=== PATIENT | female | born 1970 | race Caucasian/White ===

== ENCOUNTER 2020-07-18 12:10 | Outpatient (REF) | payer OTHER, SELFPAY ==
--- NOTE | ~2020-07-18 | XR_ITS ---
EXAMINATION: XR KNEE, LEFT CLINICAL INFORMATION: Left knee pain COMPARISON: None TECHNIQUE: Four views of the left knee. FINDINGS: No fracture or joint effusion. Alignment is anatomic. Joint spaces are well maintained. No abnormal soft tissue calcification. XR/XR knee LT 4V IMPRESSION: No evidence of acute osseous abnormality.
== END 2020-07-18 12:11 | disposition home or self-care (01) ==
LOC: HO.HMGCX 12:10
PROVIDERS: Visit Provider Hospitalist
DX: M25.562 Pain in left knee (principal)
CPT/HCPCS: 73564

== ENCOUNTER 2020-09-10 13:00 | Outpatient (REF) | payer OTHER, SELFPAY | END 2020-09-10 13:01 | disposition home or self-care (01) | LOC: HO.LAB 13:00 | PROVIDERS: Visit Provider Nurse Practitioner Family | DX: R30.0 Dysuria (principal) | CPT/HCPCS: 87086 ==

== ENCOUNTER 2021-01-22 09:09 | Emergency (ER) | payer OTHER, SELFPAY ==
--- NOTE | ~2021-01-22 | CT_ITS ---
EXAMINATION: CT HEAD WITHOUT CONTRAST CLINICAL INFORMATION: New onset of frequent headaches. COMPARISON: None TECHNIQUE: Contiguous axial imaging was performed from the skull base to vertex without intravenous administration of contrast. This CT examination was performed using dose optimization techniques as appropriate, variously including the following: *Automated exposure control *Adjustment of mA and/or kV according to patient size (this includes techniques or standardized protocols for targeted exams where dose is matched to indication/reason for exam; i.e. extremities or head) *Use of iterative reconstruction technique DLP: 650 mGy-cm FINDINGS: There is no evidence of acute intracranial hemorrhage or territorial infarction. No abnormal mass effect or midline shift is seen. Aviles to white matter differentiation is well preserved. No extra-axial fluid collections are identified. The ventricles are normal in size. There is no abnormal attenuation within the brain parenchyma. The osseous structures and soft tissues are normal. No scalp soft tissue abnormality. There are mild retention cysts or polyps bilateral maxillary sinuses. The rest of the paranasal sinuses and mastoid air cells are well aerated CT/CT head/brain wo IV con IMPRESSION: No acute intracranial process seen. Mild bilateral maxillary sinus polyps or retention cysts.
[2021-01-22 09:31] VITALS: BP 123/88; PULSE 67; RESP 18; TEMP 36; O2SAT 98; BMI 39.4
--- NOTE | 2021-01-22 10:47 | ED_ITS ---
HPI - Headache General Chief Complaint: Headache Stated Complaint: migraine Time Seen by Provider: 01/22/21 10:04 Source: patient Mode of arrival: ambulatory Limitations: no limitations History of Present Illness HPI Narrative: Patient comes emergency room complaining of headache that occurred 3 days ago. Patient states she has frequent headaches, recently started on Topamax. At this time, patient does not have any headache. Patient states that approximately 3 days ago she was sitting in the toilet, was bearing down, had sudden onset headache, then self resolved. Patient states she did not take any other medication other than Topamax. At this time patient is asymptomatic. Patient denies any neurological deficits now or during the headache episode. Related Data Home Medications Medication Instructions Recorded Confirmed paroxetine HCl 20 mg tablet 20 mg PO DAILY 07/18/20 07/18/20 Previous Rx's Medication Instructions Recorded amoxicillin 875 mg-potassium 1 tab PO BID 10 Days #20 tab 09/10/20 clavulanate 125 mg tablet (Augmentin) cephalexin 500 mg capsule 500 mg PO QID 7 Days #28 cap 09/10/20 itraconazole 100 mg capsule 200 mg PO BID 7 Days #28 cap 09/10/20 Allergies Allergy/AdvReac Type Severity Reaction Status Date / Time soma along with motrin Allergy Unknown Unknown Uncoded 01/22/21 09:31 Review of Systems Review of Systems: Constitutional : No Weight loss, No Fever, No Chills, No Night Sweats, No Fatigue, No Malaise ENT/Mouth : No Hearing loss, No Ear Pain, No Nasal Congestion, No Sinus Pain, No Hoarseness, No sore throat, No Rhinorrhea, No Swallowing Difficulty Eyes: No Eye Pain, No Swelling, No Redness, No Foreign Body, No Discharge, No Vision Changes Cardiovascular : No Chest Pain, No SOB, No Dyspnea on Exertion, No Orthopnea, No Edema, No Palpitations Respiratory : No Cough, No Sputum, No Wheezing, No Smoke Exposure, No Dyspnea Gastrointestinal : No Nausea, No Vomiting, No Diarrhea, No Constipation, No abdominal Pain, No Hematochezia, No Melena Genitourinary : no irregular bleeding, No Dysuria, No Urinary Frequency, No Hematuria, No Urinary Incontinence, No Urgency, No Flank Pain, No Urinary Flow Changes, No Hesitancy Musculoskeletal : No joint pain, No Myalgias, No Joint Swelling Skin : No Skin Lesions, No rash Neuro : No Weakness, No Numbness, No Paresthesias, No Loss of Consciousness, No Dizziness, intermittent headaches, no headache at this time, no neurological deficits Psych : No Anxiety/Panic, No Depression, No SI/HI/AH/VH, No Social Issues, Heme/Lymph: No Bruising, No Bleeding,No Lymphadenopathy Endocrine : No Polyuria, No Polydipsia, No Temperature Intolerance [facility] Social History Social History Alcohol intake: current Alcohol intake frequency: holidays/special occasions only Advance Directives: No Advance Directives Information Provided: No Physical Exam Vital Signs: Vital Signs: Last Vital Signs Temp 96.8 F 01/22/21 09:31 Pulse 67 01/22/21 09:31 Resp 18 01/22/21 09:31 BP 123/88 01/22/21 09:31 Pulse Ox 98 01/22/21 09:31 Body Mass Index 39.4 Const: Other: Appearance: Alert. Oriented X3. No acute distress. Eyes: Pupils equal, round and reactive to light. ENT: Pharynx normal. Neck: Normal inspection. Neck supple. No lymph nodes noted. No crepitus CVS: Normal heart rate and rhythm. Pulses normal. Normal S1 and S2 Respiratory: No respiratory distress. Breath sounds normal. No Wheezing. No rales Abdomen: Soft and nontender. No rigidity. No distention. Skin: Skin warm and dry. Normal skin color. Normal skin turgor. Extremities: No lower extremity edema. . No Lacerations. No Rash Neuro: Oriented X 3. No motor deficit. No sensory deficit. Moving all extermities. No slurred speech. Course Course Course Narrative: I discussed the CT scan with the patient, no acute findings. Patient instructed to take Tylenol or ibuprofen for headaches p.r.n.. MDM - Headache Imaging Data CT scan - head: Radiologist's impression: There is no evidence of acute intracranial hemorrhage or territorial infarction. No abnormal mass effect or midline shift is seen. Aviles to white matter differentiation is well preserved. No extra-axial fluid collections are identified. The ventricles are normal in size. There is no abnormal attenuation within the brain parenchyma. The osseous structures and soft tissues are normal. No scalp soft tissue abnormality. There are mild retention cysts or polyps bilateral maxillary sinuses. The rest of the paranasal sinuses and mastoid air cells are well aerated ? CT/CT head/brain wo con IMPRESSION: No acute intracranial process seen. ? Mild bilateral maxillary sinus polyps or retention cysts. Discharge Plan Discharge Clinical Impression: Headache Qualifiers: Headache chronicity pattern: acute headache Intractability: not intractable Patient Disposition: Home, Self-Care Instructions: Acute Headache (ED) Additional Instructions: Please follow-up with your primary care physician tomorrow. If you have any worsening or new symptoms, please return to the emergency room or call 911 Prescriptions: No Action paroxetine HCl 20 mg tablet 20 mg PO DAILY RF: 0 amoxicillin-pot clavulanate [Augmentin] 875-125 mg tablet 1 tab PO BID 10 Days Qty: 20 RF: 0 cephalexin 500 mg capsule 500 mg PO QID 7 Days Qty: 28 RF: 0 itraconazole 100 mg capsule 200 mg PO BID 7 Days Qty: 28 RF: 0
== END 2021-01-22 14:22 | disposition home or self-care (01) ==
PROVIDERS: Emergency Provider Emergency Medicine
DX: R51.9 Headache, unspecified (principal)
CPT/HCPCS: 70450; 99283; 99284

== ENCOUNTER 2021-01-23 19:01 | Emergency (ER) | payer OTHER, SELFPAY ==
[2021-01-23 19:04] VITALS: BP 120/81; BP 126/82; PULSE 66; PULSE 94; RESP 14; TEMP 36.8; O2SAT 100; O2SAT 99; BMI 39.6
[2021-01-23] MEDS: Ketorolac Tromethamine 15 MG/ML VIAL 30 MG IVPUSH (19:22)
[2021-01-23 19:24] LABS: MANUAL DIFF FLAG NO
[2021-01-23 19:26] LABS: Basophils Absolute Auto 0.1 X10*3/uL (0.0-0.2); Basophils Percent Auto 0.6 % (0-2); Eosinophils Absolute Auto 0.1 X10*3/uL (0.0-0.4); Eosinophils Percent Auto 0.7 % (0-4); Hematocrit 43.5 % (37-47); Hemoglobin 14.7 g/dl (12.0-16.0); Imm Gran Abs Auto 0.07 X10*3/uL (0.00-0.03); Imm Gran Pct Auto 0.4 % (0.0-0.4); Lymphocytes Absolute Auto 4.1 X10*3/uL (1.2-4.9); Lymphocytes Percent Auto 24.1 % (20-40); Mean Corpuscular HGB Conc 33.8 g/dl (31.0-35.0); Mean Corpuscular Hemoglobin 29.8 pg (27.0-33.0); Mean Corpuscular Volume 88.2 fL (80-98); Mean Platelet Volume 9.1 fL (9.4-12.3); Monocytes Absolute Auto 1.1 X10*3/uL (0.1-1.2); Monocytes Percent Auto 6.7 % (2-11); Neutrophils Absolute Auto 11.4 X10*3/uL (2.0-8.3); Neutrophils Percent Auto 67.5 % (45-73); Platelet Count 463 X10*3/uL (160-400); Red Blood Count 4.93 X10*6/uL (4.20-5.50); Red Cell Distribution Width 13.6 % (11.0-16.0); White Blood Count 16.9 X10*3/uL (4.8-10.8)
[2021-01-23] MEDS: diphenhydrAMINE HCL 50 MG/ML VIAL IVPUSH (19:26)
[2021-01-23] MEDS: Metoclopramide HCl 10 MG/2 ML VIAL IVPUSH (19:28)
--- NOTE | 2021-01-23 19:29 | ED_ITS ---
HPI - Headache General Chief Complaint: Headache Stated Complaint: headache Time Seen by Provider: 01/23/21 19:28 Source: patient Mode of arrival: ambulatory Limitations: no limitations History of Present Illness HPI Narrative: Patient presents to the ED headache patient states having these headaches since Wednesday. Patient states at the same time was having slight cough and runny nose with sinus pain. on wednesday and was evaluated by her PCP. Patient states headache is like a band around her head. Patient states coughing resolved, but still has nasal congestion and sinus pain with headache. Patient denies any slurred speech, nausea, emesis, dizziness, loss of vision, paralysis of extremities, facial droop, or change in vision. Patient denies any fever, chills, or neck stiffness. Patient denies any recent head trauma. Patient states no shortness of breath or chest pain. Related Data Home Medications Medication Instructions Recorded Confirmed paroxetine HCl 20 mg tablet 20 mg PO DAILY 07/18/20 07/18/20 Previous Rx's Medication Instructions Recorded amoxicillin 875 mg-potassium 1 tab PO BID 10 Days #20 tab 09/10/20 clavulanate 125 mg tablet (Augmentin) cephalexin 500 mg capsule 500 mg PO QID 7 Days #28 cap 09/10/20 itraconazole 100 mg capsule 200 mg PO BID 7 Days #28 cap 09/10/20 amoxicillin 875 mg-potassium 1 tab PO Q12H 10 Days #20 tab 01/23/21 clavulanate 125 mg tablet (Augmentin) bumwdmcwam-ddncuknxihckg-llmmfdhy 1 cap PO Q6H PRN #20 cap 01/23/21 50 mg-300 mg-40 mg capsule (Fioricet) ketorolac 10 mg tablet 10 mg PO Q6H PRN 5 Days #20 tab 01/23/21 triamcinolone acetonide 55 mcg 2 spray INTRANASAL DAILY 7 Days 01/23/21 nasal spray aerosol (Nasacort) #16.9 ml Allergies Allergy/AdvReac Type Severity Reaction Status Date / Time soma along with motrin Allergy Unknown Unknown Uncoded 01/22/21 09:31 Review of Systems Review of Systems: Yes all other systems are reviewed and are negative Constitutional: Constitutional: Reports as per HPI, Reports no additional constitutional complaints and Reports headache(s) Eyes: Eyes: Reports as per HPI and Reports no additional eye complaints ENT: Reports system reviewed and no additional complaints, except as documented, Reports as per HPI, Reports headache(s) and Reports nasal congestion Cardiovascular: Cardiovascular: Reports as per HPI and Reports no additional cardiovascular complaints Respiratory: Respiratory: Reports as per HPI, Reports no additional respiratory complaints and Reports cough Gastrointestinal: Gastrointestinal: Reports as per HPI and Reports no additional gastrointestinal complaints Genitourinary: Genitourinary: Reports no additional female genitourinary complaints and Reports as per HPI Musculoskeletal: Musculoskeletal: Reports no additional musculoskeletal co mplaints and Reports as per HPI Neurologic: Reports system reviewed and no additional complaints, except as documented, Reports as per HPI and Reports headache(s) Psychiatric: Psychiatric: Reports no additional psychiatric complaints and Reports as per HPI [facility] Social History Social History Alcohol intake: current Alcohol intake frequency: holidays/special occasions only Advance Directives: No Advance Directives Information Provided: Yes Physical Exam Vital Signs: Vital Signs: Last Vital Signs Temp 98.2 F 01/23/21 22:51 Pulse 72 01/23/21 22:51 Resp 16 01/23/21 22:51 BP 108/63 01/23/21 22:51 Pulse Ox 96 01/23/21 22:51 Body Mass Index 39.6 Const: General: cooperative, healthy appearing, comfortable, no acute distress, well developed, alert, awake and Physically active Orientation/consciousness: patient oriented x3 HENMT: Head: Yes normal to inspection, Yes No palpable skull fracture present, Yes normocephalic, Yes atraumatic and No abrasion Ears: hearing grossly normal bilaterally, external ears normal, TM's normal bilaterally, mastoids no rmal and no periauricular adenopathy Face and sinus: Yes sinus tenderness (frontal and maxillary) Throat: Yes posterior oropharynx normal, Yes tonsils normal and Yes uvula midline Eyes: Other: Negative photophobia Neck: Neck: Yes normal visual inspection, Yes full ROM, Yes no lymphadenopathy, Yes no meningeal signs, Yes trachea midline, Yes supple and No tender Chest: Chest palpation & inspection: normal inspection of the chest and normal palpation of entire chest wall Resp: Effort & Inspection: normal respiratory effort and able to speak in complete sentences Auscultation: clear to auscultation bilaterally Cardio: Jugular venous distension: no JVD Heart sounds: S1 normal heart sound present and S2 normal heart sound present GI: Inspection: Yes normal to inspection and No abdominal wall ecchymosis Palpation (GI): Soft to palpation, not firm, nontender, no guarding and not rigid : General: No CVA tenderness and Yes no CVA tenderness Back/Spine/Pelvis: Back: no CVA tenderness, No CVA tenderness and No back tenderness Skin: General skin exam: no rashes or lesions noted and elasticity normal Neuro: General: patient oriented x3, gait normal, no meningeal signs and CN's II-XI intact bilaterally Cranial nerves: Yes CN's II-XII intact bilaterally Extrem: General: Yes normal to inspection and Yes full ROM Psych: Appearance: grossly normal, well kempt and not disheveled Course Course Course Narrative: Patient vital signs are stable. Will treat as migraine exace rbation. Head CT scan yesterday was normal. Negative for any neuro deficit. Will give migraine cocktail will do basic labs. We will do COVID swabs. Reevaluation(s) Reevaluation #1: [place] [id number] but once again negative for fever, chills, or neck stiffness. Vital signs are stable. Patient afebril e, non tachy, and is normotensive. Negative for photophobia or neck stiffness. Negative for history of herpes or HIV. Patient had normal head CT scan yesterday. Not suspect any cardiac etiology. Time: 19:42 Reevaluation #2: Patient is sleeping comfortably in bed and not in any distress. Will re-evaluate when awaken. Time: 22:22 Reevaluation #3: Patient states feeling better. Diagnosis migraines and with sinus infection. Patient will be treated with Flonase, Toradol, Fioricet, and antibiotics. Case discussed with Dr. Gallardo who agrees with plan. MDM - Headache MDM Narrative Medical decision making narrative: Migraine exacerbation. Sinussitis Lab Data Result diagrams: 01/23/21 19:19 01/23/21 19:48 Labs: Lab Results 01/23/21 01/23/21 01/23/21 Range/Units 19:19 19:25 19:48 WBC 16.9 H (4.8-10.8) X10*3/uL RBC 4.93 (4.20-5.50) X10*6/uL Hgb 14.7 (12.0-16.0) g/dl Hct 43.5 (37-47) % MCV 88.2 (80-98) fL MCH 29.8 (27.0-33.0) pg MCHC 33.8 (31.0-35.0) g/dl RDW 13.6 (11.0-16.0) % Plt Count 463 H (160-400) X10*3/uL MPV 9.1 L (9.4-12.3) fL Immature Gran % (Auto) 0.4 (0.0-0.4) % Neut % (Auto) 67.5 (45-73) % Lymph % (Auto) 24.1 (20-40) % [place] % (Auto) 6.7 (2-11) % Eos % (Auto) 0.7 (0-4) % Baso % (Auto) 0.6 (0-2) % Lymph # (Auto) 4.1 (1.2-4.9) X10*3/uL [place] # (Auto) 1.1 (0.1-1.2) X10*3/uL Eos # (Auto) 0.1 (0.0-0.4) X10*3/uL Baso # (Auto) 0.1 (0.0-0.2) X10*3/uL Abs Immat Gran (auto) 0.07 H (0.00-0.03) X10*3/uL Absolute Neuts (auto) 11.4 H (2.0-8.3) X10*3/uL Absolute Nucleated RBC 0.000 (0.0-0.012) X10*3/uL Nucleated RBC % (auto) 0.0 (0.0-0.2) /100WBC Sodium 140 (135-145) mmol/L Potassium 3.7 (3.3-5.1) mmol/L Chloride 108 (96-108) mmol/L Carbon Dioxide 25 (22-29) mmol/L Anion Gap 11 L (12-20) BUN 19 H (9-16) mg/dL Creatinine 0.90 (0.5-1.4) mg/dL Estim Creat Clear Calc 70.9 Estimated GFR > 60 Random Glucose 107 (60-115) mg/dL Calcium 9.5 (8.4-10.2) mg/dL Total Bilirubin 0.3 (0.0-1.0) mg/dL AST 21 (5-31) U/L ALT 31 (0-31) U/L Alkaline Phosphatase 93 (39-117) U/L Total Protein 7.6 (6.5-8.0) g/dL Albumin 4.4 (3.5-5.0) g/dL Coronavirus (PCR) NEGATIVE (Negative) Influenza Type A (PCR) NEGATIVE (Negative) Influenza Type B (PCR) NEGATIVE (Negative) RSV RNA Qual (PCR) NEGATIVE (Negative) Discharge Plan Discharge Clinical Impression: Sinusitis, Migraine Patient Disposition: Home, Self-Care Instructions: Sinusitis (ED), Migraine Headache (ED) Additional Instructions: Return to the ED for any neck stiffness, photophobia, intractable headache, nausea, vomiting, fever, chills, slurred speech, facial droop, paralysis of extremities, dizziness, loss of vision, or any other concerning symptoms. Please follow-up with the primary care provider and neurologist Prescriptions: New triamcinolone acetonide [Nasacort] 55 mcg aerosol,spray 2 spray intranasal DAILY 7 Days Qty: 16.9 RF: 0 amoxicillin-pot clavulanate [Augmentin] 875-125 mg tablet 1 tab PO Q12H 10 Days Qty: 20 RF: 0 gcrlqhiqsa-bkpqbyiqmqvyd-infq [Fioricet] 50-300-40 mg capsule 1 cap PO Q6H PRN (Reason: pain) Qty: 20 RF: 0 ketorolac 10 mg tablet 10 mg PO Q6H PRN (Reason: pain) 5 Days Qty: 20 RF: 0 No Action paroxetine HCl 20 mg tablet 20 mg PO DAILY RF: 0 amoxicillin-pot clavulanate [Augmentin] 875-125 mg tablet 1 tab PO BID 10 Days Qty: 20 RF: 0 cephalexin 500 mg capsule 500 mg PO QID 7 Days Qty: 28 RF: 0 itraconazole 100 mg capsule 200 mg PO BID 7 Days Qty: 28 RF: 0 Referrals: Anabela Amado MD [Physician] - 2 days (Migraine) Stand Alone Forms: Work/School Release Interventions: ED Discharge Assessment Last Done: 01/23/21 22:52 Discharge Date/Time: 01/23/21 22:52 Print Language: Yoruba
[2021-01-23] MEDS: Butalb/Acetamin/Caff 50/325/40 TABLET 2 TAB PO (19:34)
[2021-01-23] MEDS: dexAMETHasone sod phosphate 10 MG/ML VIAL IVPUSH (19:39)
[2021-01-23] MEDS: Magnesium Sulfate/D5W 1 GM/100 ML PIGGYBACK IV (19:42)
[2021-01-23] MEDS: 0.9 % Sodium Chloride 1,000 ML 999 ML IV (19:58)
[2021-01-23 20:06] LABS: Influenza A PCR NEGATIVE (Negative); Influenza B PCR NEGATIVE (Negative); Resp Syncy Virus RNA Qual PCR NEGATIVE (Negative); SARS COV2 PCR INHOUSE NEGATIVE (Negative)
[2021-01-23 20:12] LABS: Alanine Aminotransferase 31 U/L (0-31); Albumin Level 4.4 g/dL (3.5-5.0); Alkaline Phosphatase 93 U/L (39-117); Anion Gap 11 (12-20); Aspartate Amino Transferase 21 U/L (5-31); Bilirubin Total 0.3 mg/dL (0.0-1.0); Blood Urea Nitrogen 19 mg/dL (9-16); Calcium 9.5 mg/dL (8.4-10.2); Carbon Dioxide 25 mmol/L (22-29); Chloride 108 mmol/L (96-108); Creatinine Clr Calc Pharmacy 70.9; Estimated Glomerular Filt Rate > 60; Glucose Random 107 mg/dL (60-115); Potassium 3.7 mmol/L (3.3-5.1); Sodium 140 mmol/L (135-145); Total Protein 7.6 g/dL (6.5-8.0)
[2021-01-23 20:45] VITALS: RESP 16
[2021-01-23 20:46] VITALS: RESP 16
[2021-01-23 22:51] VITALS: BP 108/63; PULSE 72; RESP 16; TEMP 36.8; O2SAT 96
== END 2021-01-23 22:52 | disposition home or self-care (01) ==
PROVIDERS: Physician Assistant; Emergency Provider Emergency Medicine
DX: G43.009 Migraine without aura, not intractable, without status migrainosus (principal); J32.9 Chronic sinusitis, unspecified; Z20.822 Contact with and (suspected) exposure to COVID-19
CPT/HCPCS: 0241U; 36415; 80053; 85025; 96365; 96375; 99284; J1100; J1200; J1885; J2765; J3475

== ENCOUNTER 2021-04-22 14:25 | Outpatient (REF) | payer OTHER, SELFPAY ==
--- NOTE | ~2021-04-22 | CT_ITS ---
EXAMINATION: CT ANGIOGRAM HEAD CLINICAL INFORMATION: Cerebral aneurysm. Headaches. COMPARISON: CT head from 01/22/2021. TECHNIQUE: Initial noncontrast stop attacher imaging of the head was performed. Noncontrast head CT was also performed. Test bolus sequences followed by intravenous administration 75 mL of Omnipaque 350. Helical imaging was performed in the axial plane from the skull base to the skull vertex. Delayed postcontrast imaging of the head was also performed. The data was processed at the radiation therapy technologist's workstation for generation of MIP sequences. Angled MIPs and volume rendered reformatted images were also generated at an offline 3D workstation. Stenoses are assessed in accordance with NASCET criteria unless otherwise indicated. This CT examination was performed using dose optimization techniques as appropriate, variously including the following: *Automated exposure control. *Adjustment of mA and/or kV according to patient size (this includes techniques or standardized protocols for targeted exams where dose is matched to indication/reason for exam; i.e. extremities or head). *Use of iterative reconstruction technique. DLP: 2212 mGy-cm FINDINGS: CT Head: There is no evidence of acute intracranial hemorrhage or edematous territorial infarction. There is no abnormal attenuation within the brain parenchyma. Aviles-white matter differentiation is preserved. The ventricles are normal in size and configuration. No evidence for obstructive hydrocephalus. No abnormal mass effect or midline shift. No extra-axial fluid collections. No pathologic intra-axial enhancement or regional oligemia. No acute soft tissue or osseous abnormalities. Mild mucosal thickening of the paranasal sinuses. Mucous retention cyst within the left maxillary sinus. The mastoid air cells and middle ear cavities are clear. Mild degenerative arthropathy of the right temporomandibular joint. Brain CTA: Intracranial Internal Carotid Arteries: Normal contrast opacification of the petrous, cavernous, paraophthalmic, and supraclinoid segments of the internal carotid arteries without focal stenosis. Right Anterior Cerebral Artery: Normal A1 segment. Normal opacification of the distal segments of the OLI. Left Anterior Cerebral Artery: Normal A1 segment. Normal opacification of the distal segments of the OLI. Anterior Communicating Artery: Normal. Right Middle Cerebral Artery: Normal opacification of the M1 segment of the MCA without focal stenosis or occlusion. Normal arborization of the distal segments. Left Middle Cerebral Artery: Normal opacification of the M1 segment of the MCA without focal stenosis or occlusion. Normal arborization of the distal segments. Right Vertebral Artery: Normal opacification of the V4 segment. Normal opacification of the proximal segments of the posterior inferior cerebellar artery. Left Vertebral Artery: Normal opacification of the V4 segment. Normal opacification of the proximal segments of the posterior inferior cerebellar artery. Basilar Artery: Normal opacification without focal stenosis or occlusion. Normal appearance of the proximal superior cerebellar arteries. Right Posterior Cerebral Artery: The P1 segment is diminutive. origin of the TELEVISION DIRECTOR with robust opacification of the posterior communicating artery. Normal opacification of the distal segments of the TELEVISION DIRECTOR. Left Posterior Cerebral Artery: Normal P1 segment. Normal opacification of the distal segments of the TELEVISION DIRECTOR. Normal opacification of the superior sagittal, straight, transverse, and sigmoid sinuses. CT/CT angio head IMPRESSION: 1. No evidence of acute intracranial hemorrhage or edematous territorial infarction. 2. Normal CTA of the head. No demonstrated proximal occlusion or flow-limiting stenosis. No demonstrated intracranial aneurysm.
[2021-04-22] MEDS: iohexoL 350 MG/ML 100 ML INFUS..BTL IV (16:29)
== END 2021-04-22 14:26 | disposition home or self-care (01) ==
LOC: HO.CT 14:25
PROVIDERS: PCP Internal Medicine; Visit Provider Psychiatry & Neurology Neurology
DX: I87.1 Compression of vein (principal)
CPT/HCPCS: 70496; Q9967

== ENCOUNTER 2021-04-22 14:35 | Outpatient (REF) | payer OTHER, SELFPAY ==
[2021-04-22 15:33] LABS: Blood Urea Nitrogen 19 mg/dL (9-16); Estimated Glomerular Filt Rate > 60
== END 2021-04-22 14:36 | disposition home or self-care (01) ==
LOC: HO.LAB 14:35
PROVIDERS: Visit Provider Psychiatry & Neurology Neurology
DX: I67.1 Cerebral aneurysm, nonruptured (principal)
CPT/HCPCS: 36415; 82565; 84520

== ENCOUNTER 2021-07-07 14:22 | Outpatient (REF) | payer OTHER, SELFPAY ==
[2021-07-07 17:17] LABS: Influenza A PCR NEGATIVE (Negative); Influenza B PCR NEGATIVE (Negative); Resp Syncy Virus RNA Qual PCR NEGATIVE (Negative); SARS COV2 PCR INHOUSE NEGATIVE (Negative)
== END 2021-07-07 14:23 | disposition home or self-care (01) ==
LOC: HO.LAB 14:22
PROVIDERS: Visit Provider Internal Medicine
DX: R09.89 Other specified symptoms and signs involving the circulatory and respiratory systems (principal)
CPT/HCPCS: 0241U

== ENCOUNTER → 2023-01-11 14:32 | Outpatient (BNVA) | payer SELFPAY | DX: Z23 Encounter for immunization (principal) ==

== ENCOUNTER 2023-07-06 13:04 | Outpatient (AMB) | payer OTHER, MEDICAID, SELFPAY ==
[2023-07-06 13:05] VITALS: BP 126/84; PULSE 70; TEMP 36.6; O2SAT 98; BMI 37.7
--- NOTE | 2023-07-06 13:05 | MHC.OFFWIV ---
Intake Vital Signs 07/06/23 13:05 Height 4 ft 11 in Weight 186 lb 8 oz BMI 37.7 BP 126/84 Blood Pressure Location Lt brachial Position Sitting Pulse 70 Pulse Source Pulse Oximeter Temp 97.8 F Temp Source Oral Pulse Oximetry (%) 98 Oxygen Delivery Method Room Air Intake Visit Reasons: Sore throat Intake Note: Pt presents to the office today for c/o a sore throat. She states she has been tired lately and noticed white spots on her tonsils. Pt states she has had a sore throat x3 days. Allergies Soma and motrin Allergy (Intermediate, Uncoded 07/06/23 13:29) hives, rash Medication List - Last Reconciled 07/06/23 by Marbin Chakraborty MD paroxetine HCl 20 mg PO DAILY HPI Sore throat HPI Details Patient presents for a sick visit. Reporting symptoms of sinus congestion, sore throat and difficulty swallowing. Low-grade fever. No family member is sick. No recent travel. Patient reports symptoms of malaise and fatigue. [facility] Social History Alcohol intake: current Alcohol intake frequency: holidays/special occasions only Patient Tobacco Use Status: Never used Tobacco Use of substances other than those prescribed or required for medical reasons: No Physical Exam Vital Signs: Last Vital Signs Temp 97.8 F 07/06/23 13:05 Pulse 70 07/06/23 13:05 BP 126/84 07/06/23 13:05 Pulse Ox 98 07/06/23 13:05 Oxygen Delivery Method Room Air 07/06/23 13:05 BMI result Body Mass Index 37.7 Const General: cooperative and healthy appearing Nutritional Appearance: well nourished Orientation/consciousness: patient oriented x3 Limitations: no limitations HEENT Head: Yes normal to inspection Eyes General: appearance normal, both eyes and all related structures Neck Neck: Yes normal visual inspection Chest Chest palpation & inspection: normal palpation of entire chest wall Resp Effort & Inspection: normal respiratory effort Neuro General: patient oriented x3 Results AMB Rapid Strep AMB Rapid Strep Negative Last Edit by Shelli Nathan MA on 07/06/23 13:21 Results Reviewed Results Reviewed: Laboratory Last Values Strep Scn Rapid [facility] Negative 07/06/23 13:19 Assessment & Plan Assessment & Plan (1) Upper respiratory tract infection: Code(s): J06.9 - Acute upper respiratory infection, unspecified Plan: Antibiotics ordered. Increase fluid intake. Tylenol for aches and pains. If symptoms worsen, follow-up here for a recheck. Orders: Orders AMB Rapid Strep Screen Today Z13.9 - Encounter for screening, unspecified Coding Level of Care Code Est Pt Level 3 (48135) Diagnoses Upper respiratory tract infection J06.9
== END 2023-07-06 13:37 | disposition home or self-care (01) ==
PROVIDERS: Visit Provider Internal Medicine
DX: Z13.9 Encounter for screening, unspecified (principal); J06.9 Acute upper respiratory infection, unspecified
CPT/HCPCS: 87880; 99213

== ENCOUNTER 2023-09-13 15:41 | Outpatient (AMB) | payer OTHER, SELFPAY ==
--- NOTE | 2023-09-13 15:43 | AM.OFFWIN_ITS ---
Intake Vital Signs 09/13/23 15:44 Height 4 ft 11 in BP 130/80 Blood Pressure Location Rt brachial Position Sitting Pulse 82 Pulse Source Pulse Oximeter Temp 98.1 F Temp Source Oral Pulse Oximetry (%) 98 Intake Visit Reasons: EP Diarrhea, lower back/side pain Intake Note: pt is here for c/o diarrhea, reports lower back and side pain Patient Tobacco Use Status: Never used Tobacco Allergies Soma and motrin Allergy (Intermediate, Uncoded 09/13/23 15:44) hives, rash Do you need a note to return to daycare/school/sports/work: No HPI HPI Comments History of Present Illness Details Patient presents to the walk-in today for sick visit Complaining of diarrhea for last 5 days, back pain for last 2 days Reports she called out sick yesterday 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 Pending appointment with GI, patient reports that she has history of stomach issues and has been procrastinating about getting an appointment with GI for follow-up [facility] Social History Alcohol intake: current Alcohol intake frequency: holidays/special occasions only Patient Tobacco Use Status: Never used Tobacco Review of Systems Const All systems reviewed & are unremarkable except as noted in HPI and below Physical Exam Vital Signs: Last Vital Signs Temp 98.1 F 09/13/23 15:44 Pulse 82 09/13/23 15:44 BP 130/80 09/13/23 15:44 Pulse Ox 98 09/13/23 15:44 General: awake, alert, oriented. Answers questions appropriately. Fully engaged in examination. Skin: warm, dry, intact HEENT: Normocephalic. Hearing intact. Cardiac: External chest normal in appearance. Respiratory: No cough, audible wheezing or stridor. Abdomen: without gross distension. soft, nontender. no guarding. no CVA tenderness MS: No obvious swelling or deformities. Tender to palpation midline lumbar vertebrae lumbar paraspinal muscles Neurological: Oriented to person, place, time and situation. Thought process intact. Psychiatric: Appropriate mood and affect. Good judgment and insight. Results AMB Urinalysis, Automated UA Leukoctes 0 Rubin/uL Last Edit by Jaylon Belle CMA on 09/13/23 16:19 UA Nitrite Negative Last Edit by Jaylon Belle, DIANE on 09/13/23 16:19 UA Urobilinogen 0.2 mg/dL Last Edit by Jaylon Belle, DIANE on 09/13/23 16 :19 UA Protein 30 mg/dL Last Edit by Jaylon Belle, DIANE on 09/13/23 16:19 UA pH 5.5 Last Edit by Jaylon Belle, DIANE on 09/13/23 16:19 UA Blood 0 Davonte/uL Last Edit by Jaylon Belle, DIANE on 09/13/23 16:19 UA Specific [place] 1.030 Last Edit by Jaylon Belle, DIANE on 09/13/23 16:19 UA Ketone Positive Last Edit by Jaylon Belle, DIANE on 09/13/23 16:19 UA Bilirubin 1 mg/dL Last Edit by Jaylon Belle CMA on 09/13/23 16:19 UA Glucose 0 mg/dL Last Edit by Jaylon Belle, DIANE on 09/13/23 16:19 Assessment & Plan Assessment & Plan (1) Diarrhea: Code(s): R19.7 - Diarrhea, unspecified (2) Back pain: Code(s): M54.9 - Dorsalgia, unspecified Plan Diarrhea and back pain likely secondary to viral GI illness Advised dietary modifications including brat diet Continue to drink plenty of fluids to ensure hydrated Methocarbamol 500 mg p.o. as needed for muscle spasms Work note provided Patient advised on red flag symptoms and when to seek treatment in the emergency room Follow up with GI Follow up with PCP or return here for any new worsening symptoms Orders: Orders AMB Urinalysis Automated Today Z13.9 - Encounter for screening, unspecified Medications: New methocarbamol 500 mg PO TID 14 tabs 0RF Coding Level of Care Code Est Pt Level 3 (80751) Diagnoses Diarrhea R19.7 Back pain M54.9
[2023-09-13 15:44] VITALS: BP 130/80; PULSE 82; TEMP 36.7; O2SAT 98
== END 2023-09-13 16:34 | disposition home or self-care (01) ==
PROVIDERS: Visit Provider Registered Nurse Emergency
DX: R19.7 Diarrhea, unspecified (principal); M54.9 Dorsalgia, unspecified
CPT/HCPCS: 81003; 99213

== ENCOUNTER 2023-11-01 13:41 | Outpatient (AMB) | payer OTHER, SELFPAY ==
--- NOTE | 2023-11-01 13:42 | MHC.PC.OV ---
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 Required: No Allergies soma along with motrin Allergy (Unknown, Uncoded 11/01/23 13:54) Hives Medication List - Last Reconciled 11/01/23 by Prashant Brown MD naproxen sodium (Aleve) 440 mg PO DAILY paroxetine HCl 20 mg PO DAILY Tobacco use date assessed: 11/01/23 Dental Screening Dental Screen Date: 11/01/23 Did you have a dental visit in the last 12 months?: No Did you have a dental problem in the last 6 months where you did not have access to dental care?: No HPI Staff Development Educator - Establish Care HPI Details 52-year-old obese female with a history of migraine be seen for the 1st time. Has had a CT scan of the head had some mild sinus problems and maxillary sinus polyps 2020. PFSH Medical History (Updated 11/01/23 @ 14:25 by Prashant Brown MD) Dysuria Left knee pain Cellulitis Upper respiratory tract infection Otitis media Tinea of nail Surgical History (Updated 11/01/23 @ 14:01 by Prashant Brown MD) H/O tubal ligation Family History (Updated 11/01/23 @ 14:03 by Prashant Brown MD) Paternal Uncle Heart attack Paternal Aunt Colon cancer Maternal Aunt Colon cancer Social History (Updated 11/01/23 @ 14:04 by Prashant Brown MD) Alcohol intake: current Alcohol intake frequency: holidays/special occasions only Comment: once a month 2 shots Patient Tobacco Use Status: Never used Tobacco Years Smoked: 2013 stopped 1/2 pack a day x 20 years service: No Current occupational status: employed Cognitive needs: No Hearing needs: No Vision needs: No Questionnaire PHQ-9 Over the last 2 weeks, how often have you been bothered by any of the following problems? 1. Little interest or pleasure in doing things: several days 2. Feeling down, depressed, or hopeless: several days 3. Trouble falling or staying asleep, or sleeping too much: several days 4. Feeling tired or having little energy: several days 5. Poor appetite or overeating: several days 6. Feeling bad about yourself - or that you are a failure or have let yourself or your family down: several days 7. Trouble concentrating on things, such as reading the newspaper or watching television: not at all 8. Moving or speaking so slowly that other people could have noticed. Or the opposite - being so fidgety or restless that you have been moving around a lot more than usual: not at all 9. Thoughts that you would be better off or of hurting yourself in some way: not at all Total score: 6 Depression Screening Interpretation: Positive Depression Screening Follow-up: Existing condition Depression Screening Done: Yes 27720 - PHQ-9 Billing: Yes Source: Developed by Drs. Juan C Mitchell, Nita Dsouza, Kevyn Helm and colleagues, with an educational keli from [employer]. Thrive Questionnaire Date Thrive assessed: 11/01/23 I am a: Patient What is your living situation today?: I have a steady place to live Within the past 12 months, did the food you bought not last and you didn't have the money to get more?: Never true Within the past 12 months, did you worry whether your food would run out before you got money to buy more?: Never true Do you have trouble paying for medicines?: No Do you have trouble getting transportation to medical appointments?: No Do you have trouble paying your heating and electricity bill?: No Do you have trouble taking care of your child, family member or friend?: No Do you have trouble with day-to-day activities such as bathing, preparing meals, shopping, managing finances, etc.?: No Are you currently unemployed and looking for a job?: No Are you interested in more education?: No Please select the resources that you would like help with: None Currently or been in a relationship where the following occur: No concerns reported THRIVE Score: 0 AUDIT C Alcohol Use Questionnaire (AUDIT-C) 1. How often do you have a drink containing alcohol?: Monthly or less 2. How many drinks containing alcohol do you have on a typical day when you are drinking?: 1 or 2 3. How often do you have six or more drinks on one occasion?: Never Total Score: 1 ZURDO-7 AMB Questionnaire ZURDO-7 Date ZURDO - 7 assessed: 11/01/23 Feeling nervous, anxious, or on edge: 1 = Several days Not being able to stop or control worryin = Several days Worrying too much about different things: 1 = Several days Trouble relaxin = Several days Being so restless that it is hard to sit still: 0 = Not at all Becoming easily annoyed or irritable: 0 = Not at all Feeling afraid as if something awful might happen: 0 = Not at all Total ZURDO-7 score (0-4 normal; 5-9 mild; 10-14 moderate; 15-21 severe): 4 Source: Developed by Drs. Juan C Mitchell, Nita Dsouza, Kevyn Helm and colleagues, with an educational keli from [employer]. ZURDO-7 Assessment Billing ZURDO-7 Assessment Tool: ZURDO-7 Assessment 94073 Physical exam (Primary Care) Vital Signs: Last Vital Signs Pulse 79 11/01/23 13:43 BP 112/64 11/01/23 13:43 Pulse Ox 98 11/01/23 13:43 Oxygen Delivery Method Room Air 11/01/23 13:43 BMI result Body Mass Index 34.9 Tobacco/Smoking Status: Tobacco use Status Tobacco use date assessed 11/01/23 11/01/23 13:51 Patient Tobacco Use Status Never used Tobacco 11/01/23 13:51 PHQ-9: PHQ-9 Score PHQ-9: Total score 6 11/01/23 13:51 Depression Screening Interpretation: Positive Depression Screening Follow-up: Existing condition Thrive Assessment: Date of Thrive Assessment Date Thrive assessed 11/01/23 11/01/23 13:51 Currently or been in a relationship where the following occur: No concerns reported Const General: alert; No acute distress Eyes Conjunctivae: conjunctivae normal Resp Auscultation: clear to auscultation bilaterally Cardio Rate: regular rate Rhythm: regular rhythm GI Inspection: Yes normal to inspection Extrem General: Yes normal to inspection and No edema Assessment and Plan Assessment & Plan (1) Obesity (BMI 30-39.9): Code(s): E66.9 - Obesity, unspecified Plan: Diet and exercise (2) Migraine: Code(s): G43.909 - Migraine, unspecified, not intractable, without status migrainosus Plan: Patient is advised to eat healthy, keep well hydrated, keep active and have adequate sleep. (3) Diverticulosis: Code(s): K57.90 - Diverticulosis of intestine, part unspecified, without perforation or abscess without bleeding (4) Diarrhea: Code(s): R19.7 - Diarrhea, unspecified (5) Left wrist pain: Code(s): M25.532 - Pain in left wrist (6) Colon cancer screening: Code(s): Z12.11 - Encounter for screening for malignant neoplasm of colon (7) Breast cancer screening by mammogram: Code(s): Z12.31 - Encounter for screening mammogram for malignant neoplasm of breast (8) Generalized anxiety disorder: Comment: decline counselling Code(s): F41.1 - Generalized anxiety disorder Plan: patient state on paxil advised to take med at night due to drowiness side effect Orders: Orders MM tomosynthesis screening BI Today Z12.31 - Encounter for screening mammogram for malignant neoplasm of breast Thyroid Stimulating Hormone Today G43.909 - Migraine, unspecified, not intractable, without status migrainosus Vitamin B12 and Folate Today G43.909 - Migraine, unspecified, not intractable, without status migrainosus UA w Microscopic Today G43.909 - Migraine, unspecified, not intractable, without status migrainosus Complete Blood Count Auto Diff Today G43.909 - Migraine, unspecified, not intractable, without status migrainosus Comprehensive Met. Panel Today G43.909 - Migraine, unspecified, not intractable, without status migrainosus Free T4 (Free Thyroxine) Today G43.909 - Migraine, unspecified, not intractable, without status migrainosus Lipid Panel Today E78.00 - Pure hypercholesterolemia, unspecified, G43.909 - Migraine, unspecified, not intractable, without status migrainosus Vitamin D 25-OH Total Today G43.909 - Migraine, unspecified, not intractable, without status migrainosus XR wrist LT 2V Today M25.532 - Pain in left wrist Referrals Gastroenterology Referral K57.90 - Diverticulosis of intestine, part unspecified, without perforation or abscess without bleeding, R19.7 - Diarrhea, unspecified, Z12.11 - Encounter for screening for malignant neoplasm of colon Coding Level of Care Code New Pt Level 4 (24141) Diagnoses Obesity (BMI 30-39.9) E66.9 Migraine G43.909 Diverticulosis K57.90 Diarrhea R19.7 Left wrist pain M25.532 Colon cancer screening Z12.11 Breast cancer screening by mammogram Z12.31 Generalized anxiety disorder F41.1 Additional Codes ZURDO-7 Assessment Billing - ZURDO-7 Assessment Tool: ZURDO-7 Assessment 55346 ([id number])
[2023-11-01 13:43] VITALS: BP 112/64; PULSE 79; O2SAT 98; BMI 34.9
== END 2023-11-01 14:32 | disposition home or self-care (01) ==
PROVIDERS: PCP Internal Medicine; Visit Provider Internal Medicine
DX: G43.909 Migraine, unspecified, not intractable, without status migrainosus (principal); E66.9 Obesity, unspecified; Z68.34 Body mass index [BMI] 34.0-34.9, adult; K57.90 Diverticulosis of intestine, part unspecified, without perforation or abscess without bleeding; R19.7 Diarrhea, unspecified; M25.532 Pain in left wrist; Z12.11 Encounter for screening for malignant neoplasm of colon; Z12.31 Encounter for screening mammogram for malignant neoplasm of breast; F41.1 Generalized anxiety disorder
CPT/HCPCS: 99214

== ENCOUNTER 2023-12-31 09:43 | Outpatient (REF) | payer OTHER, SELFPAY | END 2023-12-31 09:44 | disposition home or self-care (01) | LOC: HO.LAB 09:43 | PROVIDERS: PCP Internal Medicine; Visit Provider Internal Medicine | DX: Z13.89 Encounter for screening for other disorder (principal) ==

== ENCOUNTER 2024-03-31 07:24 | Outpatient (REF) | payer OTHER, SELFPAY ==
--- NOTE | ~2024-03-31 | XR_ITS ---
EXAMINATION: XR WRIST, LEFT CLINICAL INFORMATION: M25.532 - Pain in left wrist COMPARISON: None available. TECHNIQUE: PA, lateral, and oblique views of the left wrist. FINDINGS: Deformity of the distal radius compatible with old healed intra-articular fracture at the level of the lunate fossa. Small ossicle distal to the ulnar styloid. Mild osteoarthritis of the 1st carpometacarpal joint. XR/XR wrist LT 2V IMPRESSION: 1. Old healed distal radius fracture. 2. Mild osteoarthritis of the 1st carpometacarpal joint. Electronically signed by: Horace Sims MD 03/31/2024 09:44 PM EST
[2024-03-31 10:01] LABS: MANUAL DIFF FLAG NO
[2024-03-31 11:08] LABS: Basophils Absolute Auto 0.1 X10*3/uL (0.0-0.2); Basophils Percent Auto 0.9 % (0-2); Eosinophils Absolute Auto 0.1 X10*3/uL (0.0-0.4); Eosinophils Percent Auto 1.7 % (0-4); Hematocrit 39.4 % (37.0-47.0); Hemoglobin 12.9 g/dl (12.0-16.0); Imm Gran Abs Auto 0.02 X10*3/uL (0.00-0.03); Imm Gran Pct Auto 0.3 % (0.0-0.4); Lymphocytes Absolute Auto 2.4 X10*3/uL (1.2-4.9); Mean Corpuscular HGB Conc 32.7 g/dl (31.0-35.0); Mean Corpuscular Hemoglobin 29.4 pg (27.0-33.0); Mean Corpuscular Volume 89.7 fL (80.0-98.0); Mean Platelet Volume 9.1 fL (9.4-12.3); Monocytes Absolute Auto 0.6 X10*3/uL (0.1-1.2); Monocytes Percent Auto 8.9 % (2-11); Neutrophils Absolute Auto 3.5 x10*3/uL (2.0-8.3); Neutrophils Percent Auto 52.2 % (45-73); Platelet Count 481 X10*3/uL (160-400); Red Blood Count 4.39 X10*6/uL (4.20-5.50); Red Cell Distribution Width 13.3 % (11.0-16.0); White Blood Count 6.6 X10*3/uL (4.8-10.8)
[2024-03-31 11:53] LABS: Alanine Aminotransferase 16 U/L (0-31); Alkaline Phosphatase 91 U/L (39-117); Anion Gap 10 (12-20); Aspartate Amino Transferase 27 U/L (5-31); Bilirubin Total 0.4 mg/dL (0.0-1.0); Blood Urea Nitrogen 19 mg/dL (9-16); Calcium 9.2 mg/dL (8.4-10.2); Carbon Dioxide 29 mmol/L (22-29); Chloride 107 mmol/L (96-108); Cholesterol 193 mg/dL (<200); Estimated Glomerular Filt Rate > 60; Glucose Random 84 mg/dL (60-115); HDL Cholesterol 56 mg/dL (>40); LDL Cholesterol Calculated 126 mg/dL (<100); Potassium 3.8 mmol/L (3.3-5.1); Sodium 142 mmol/L (135-145); Total Protein 7.5 g/dL (6.5-8.0); Triglycerides 58 mg/dL (<150)
[2024-03-31 12:09] LABS: Folate 17.1 ng/mL (> or = 4.0); Vitamin B12 934 pg/mL (200-900)
[2024-03-31 12:13] LABS: Free T4 (Free Thyroxine) 1.05 ng/dL (0.71-1.85); Thyroid Stimulating Hormone 1.21 uIU/mL (0.32-4.0); Vitamin D 25-OH Total 67.1 ng/mL (>30)
[2024-03-31 13:29] LABS: Appearance Urine Cloudy; Color Urine Yellow; Glucose Urine UA Negative (Negative); Leukocyte Esterase Urine Trace (Negative); Nitrite Urine Negative (Negative); Specific Gravity - Urine 1.025 (1.005-1.025); UMIC TRIGGER UA YES; Urine Blood Negative (Negative); Urine Ketones Negative (Negative); Urine Protein Negative (Neg-Trace)
[2024-03-31 13:39] LABS: Bacteria Urine None Seen (None Seen); Hyaline Casts Urine 0-2 /LPF (0-2); RBC Urine 0-2 /HPF (0-2); Squamous Epithelial Cell Urine 0-2 /HPF (0-2); WBC Urine 0-5 /HPF (0-5)
== END 2024-03-31 07:25 | disposition home or self-care (01) ==
LOC: HO.LAB 07:24
PROVIDERS: PCP Internal Medicine; Visit Provider Internal Medicine
DX: G43.909 Migraine, unspecified, not intractable, without status migrainosus (principal); E78.00 Pure hypercholesterolemia, unspecified; M25.532 Pain in left wrist
CPT/HCPCS: 36415; 73100; 80053; 80061; 81001; 82306; 82607; 82746; 84439; 84443; 85025

== ENCOUNTER 2024-04-11 11:06 | Outpatient (AMB) | payer OTHER, SELFPAY ==
--- NOTE | 2024-04-11 11:29 | AM.OFFWIN_ITS ---
Intake Vital Signs 04/11/24 11:32 Weight 180 lb BP 122/90 H Blood Pressure Location Lt brachial Position Sitting Pulse 66 Pulse Source Pulse Oximeter Temp 98.7 F Temp Source Oral Pulse Oximetry (%) 98 Oxygen Delivery Method Room Air Intake Visit Reasons: EP Bilat eye discharge, irritation Intake Note: Patient here for bilat eye discharge and itching after having a reaction to lash extensions 1 week ago. Patient Tobacco Use Status: Never used Tobacco Allergies Soma and motrin Allergy (Intermediate, Uncoded 04/11/24 11:33) hives, rash soma along with motrin Allergy (Unknown, Uncoded 04/11/24 11:33) Hives Do you need a note to return to daycare/school/sports/work: No HPI HPI Comments History of Present Illness Details History of Present Illness - The patient is a 53-year-old female pr esenting with eye irritation and discharge. - Initial symptoms of itchiness began fo llowing the removal of eyelash extensions. - The onset was a week ago, and the symp toms included white to grayish sticky discharge, swelling of the eyelids, and blurred vision due to the discharge. - The patient had exposure to a hospital patient with conjunctivitis, potentially complicating the condition. - Utlq-bir-[id number] measures like aloe an d water failed to provide relief, and lid swelling, although slightly reduced, remains with persistent morning crusting. Physical Exam General: Cooperative, healthy appearing, comfortable, no acute distress and well developed Orientation: Patient oriented x3 Limitations: No limitations Head: Normal to inspection Ears: Hearing grossly normal bilaterally Nose: Normal external nose present Face and sinus: Normal facial exam Eyes: Appearance abnormal, bilateral upper and lower eyelids slightly swollen, red, with green crusting noted. Neck: Normal visual inspection and Yes full ROM Respiratory: Normal respiratory effort and able to speak in complete sentences. Skin: No rashes or lesions noted Neuro: Patient oriented x3 Extremities: Normal to inspection [facility] Medical History (Updated 04/11/24 @ 11:55 by Agata Dowd PA-C) Upper respiratory tract infection Tinea of nail Cellulitis Otitis media Dysuria Left knee pain Surgical History (Updated 11/02/23 @ 09:21 by Nicole Conte) H/O tubal ligation Family History (System 11/02/23 @ 09:21 by Nicole Conte) Paternal Uncle Heart attack Paternal Aunt Colon cancer Maternal Aunt Colon cancer Social History (System 11/02/23 @ 09:21 by Nicole Conte) Alcohol intake: current Alcohol intake frequency: holidays/special occasions only Comment: once a month 2 shots Patient Tobacco Use Status: Never used Tobacco Years Smoked: 2013 stopped 1/2 pack a day x 20 years service: No Current occupational status: employed Cognitive needs: No Hearing needs: No Vision needs: No Review of Systems Const All systems reviewed & are unremarkable except as noted in HPI and below Physical Exam Vital Signs: Last Vital Signs Temp 98.7 F 04/11/24 11:32 Pulse 66 04/11/24 11:32 BP 122/90 H 04/11/24 11:32 Pulse Ox 98 04/11/24 11:32 Oxygen Delivery Method Room Air 04/11/24 11:32 Assessment & Plan Assessment & Plan (1) Bacterial conjunctivitis of both eyes: Code(s): H10.9 - Unspecified conjunctivitis; B96.89 - Other specified bacterial agents as the cause of diseases classified elsewhere Plan: Plan The therapeutic plan includes antibiotic ointment, erythromycin, to tackle the bacterial component of the conjunctivitis, to be applied to the inner eyelids four times daily for seven days. Pataday olopatadine drops are also recommended for relief of allergic conjunctivitis symptoms, provided [id number] potentially due to the reaction from previous eyelash extensions. The patient acknowledges these interventions and the significance of compliance to manage symptoms effectively, including consideration of temporary leave from work duties to ensure a safe recovery. Patient was informed and verbally consented to the use of an ambient scribe for clinic note documentation during this visit. Medications: New erythromycin Apply to both eye 4 times a day while awake 0.5 inches ophthalmic (eye) QID 3.5 grams 1RF olopatadine 0.2% (Pataday Once Daily Relief) 1 drp ophthalmic (eye) DAILY PRN 2.5 mL 0RF itching Coding Level of Care Code Est Pt Level 3 (41729) Diagnoses Bacterial conjunctivitis of both eyes H10.9; B96.89
[2024-04-11 11:32] VITALS: BP 122/90; PULSE 66; TEMP 37.1; O2SAT 98
== END 2024-04-11 12:00 | disposition home or self-care (01) ==
PROVIDERS: PCP Internal Medicine; Visit Provider Physician Assistant
DX: H10.9 Unspecified conjunctivitis (principal); B96.89 Other specified bacterial agents as the cause of diseases classified elsewhere

== ENCOUNTER 2024-05-18 16:20 | Outpatient (AMB) | payer OTHER, SELFPAY ==
--- OUTSIDE RECORDS SUMMARY | 2024-05-18 16:21 | XMS_ITS | Encounter Summary ---
Author Organization [employer] Address [address] [place] [address] [place] [address] Care Team Providers Care Medical Receptionist Medical Assistant Name Role Phone Unavailable Primary Care Provider Unavailabl e Reason for Visit * Reason Onset Date Comments New Patient 11/25/2022 Encounter Details Date Type Department Care Team (Late st Contact Info) Description 11/25/2022 Telephone [facility] [address] [place] [address] Farshad Aldrich MD [address] [place], [place] [id number] New Patient Social History Tobacco Use Types Packs/Day Years Used Date Smoking Tobacco: Never Smokeless Tobacco: Never Comments Unknown Sex and Gender Information Value Date Recorded Sex Assigned at Female 10/26/2022 1:48 PM EDT Legal Sex Female 1:47 PM EDT Gender Identity Female 10/26/2022 1:48 PM EDT Sexual Orientation Straight 10/26/2022 1: 48 PM EDT documented as of this encounter Miscellaneous Notes * Telephone Encounter - Kit Nick - 11/25/2022 2:10 PM EDT Pt has been transfer over to wait list for [employer]ECTIVE SINCE 11/25/2022 documented in this encounter Plan of Treatment Not on file documented as of this encounter Visit Diagnoses Not on filedocumented in this encounter
--- OUTSIDE RECORDS SUMMARY | 2024-05-18 16:21 | XMS_ITS | Clinical Summary ---
Author Organization [employer] Address [address] [facility] [address] [place] [address] Care Team Providers Care Microbiology Manager Name Role Phone Unavailable Primary Care Provider Unavailabl e Allergies Active Allergy Reactions Criticality Noted Date Comments Carisoprodol Hives 10/26/2022 Medications betamethasone dipropionate 0.05 % creamIndications: Flexural eczema Apply topically 2 times daily. 45 g 3 Active acetaminophen (Tylenol) 500 MG tablet Take 2 tablets (1,000 mg) by mouth every 6 (six) hours if needed for moderate pain or fever for up to 25 doses. 50 tablet 3 Active ibuprofen 400 MG tablet Take 1 tablet (400 mg) by mouth every 6 (six) hours if needed for moderate pain or fever for up to 30 doses. 30 tablet 3 Active Nirmatrelvir&Gopal navir 300/100 (Paxlovid, 300/100,) 20 x 150 MG & 10 x 100MG tablet therapy pack Take 300 mg by mouth 2 times daily. Take 3 tablets 2x/day for 5 days 30 each 3 Active PARoxetine (Paxil) 20 MG tabletIndications :Anxiety disorder, unspecified type Take 1 tablet (20 mg) by mouth in the morning. 90 tablet 3 Active Active Problems Problem Noted Date Diagnosed Date Anxiety disorder 10/26/2022 Assessment & Plan (10/26/2022 3:03 PM EDT): Off Paxil x 2w. Med rec done in [facility]. Rx Paxil 20mg x 3m, fu with new PCP She feels safe at home and is able to reach out for safety Flexural eczema 10/26/2022 Assessment & Plan (10/26/2022 3:02 PM EDT): On neck Avoid Jewelry, crossed straps bras Use cerave cream + betamethasone cream bid x 2w then prn Intertriginous candidiasis 10/26/2022 Assessment & Plan (10/26/2022 3:02 PM EDT): On inguinal/perineal area. Keep area clean and dry Use Lotrisone cream bid and fu w new PCP Elevated blood pressure reading 10/26/2022 Assessment & Plan (10/26/2022 5:07 PM EDT): No hx HTN. Counseled re low salt diet/increase moderate physical activity. FU w new PCP or with RN in 4-5w. If BP continues to be elevated, may need BP machine and fu w PCP Social History Tobacco Use Types Packs/Day Years Used Date Smoking Tobacco: Never Smokeless Tobacco: Never Tobacco Cessation:Counseling Given: Not Answered Comments Unknown Sex and Gender Information Value Date Recorded Sex Assigned at Female 10/26/2022 1:48 PM EDT Legal Sex Female 1:47 PM EDT Gender Identity Female 10/26/2022 1:48 PM EDT Sexual Orientation Straight 10/26/2022 1: 48 PM EDT Last Filed Vital Signs Vital Sign Reading Time Taken Comments Blood Pressure 134/92 03/15/2023 1:45 PM EST Pulse 91 03/15/2023 1:45 PM EST Temperature 36.8 ??C (98.2 ??F) 03/15/2023 1:45 PM ES T Respiratory Rate 18 03/15/2023 1:45 PM EST Oxygen Saturation 97% 03/15/2023 1:45 PM EST Inhaled Oxygen Concentration - - Weight 88.1 kg (194 lb 3.2 oz) 03/15/2023 1:45 P M EST Height - - Body Mass Index - - Plan of Treatment Health Maintenance Due Date Last Done Comments CT Colonography 1968 Colonoscopy 1968 Colorectal Cancer Screening 1968 Depression Screening 1968 FIT DNA/Cologuard 1968 FIT 1968 FOBT 1968 HIV Screening 1968 SDOH Screening 1968 Sigmoidoscopy 1968 Alcohol/Substance Use Screening 1980 Hepatitis C Screening 1986 DTaP/Tdap/Td Vaccines (1 - Tdap) 12/23/1987 Hepatitis B Vaccines (1 of 3 - 19+ 3-dose series) 12/23/1987 Pap Smear 1989 Cervical Cancer Screening 1998 HPV/Cotest 1998 Mammogram 2008 Pneumococcal Vaccine: 50+ Ye ars (1 of 1 - PCV) 2018 Zoster Vaccines (1 of 2) 2018 COVID-19 Vaccine (1 - 2023-2 5 season) 2023 Influenza Vaccine (#1) 2023 Tobacco Screening 03/15/2024 03/15/2023 RSV Patients and Pa tients Aged 60 years or older (1 - 1-dose 75+ series) 12/23/2043 HIB Vaccines Aged Out No longer eligi ble based on patient's age to complete this topic HPV Vaccines Aged Out No longer eligi ble based on patient's age to complete this topic Hepatitis A Vaccines Aged Out No long er eligible based on patient's age to complete this topic IPV Vaccines Aged Out No longer eligi ble based on patient's age to complete this topic Meningococcal Vaccine Aged Out No pearl mihaela eligible based on patient's age to complete this topic Pneumococcal Vaccine: Pediat rics (0 to 5 Years) and At-Risk Patients (6 to 49) Years) Aged Out No longer elig ible based on patient's age to complete this topic RSV under 20 months Aged Out No longe r eligible based on patient's age to complete this topic Rotavirus Vaccines Aged Out No longer eligible based on patient's age to complete this topic Insurance [facility] C3 HSN FULL
[2024-05-18 16:23] VITALS: BP 112/80; PULSE 68; O2SAT 98; BMI 35.9
--- NOTE | 2024-05-18 16:23 | MHC.PC.OV ---
Vital Signs 05/18/24 16:23 Height 4 ft 11 in Weight 178 lb BMI 35.9 BP 112/80 Blood Pressure Location Lt brachial Position Sitting Pulse 68 Pulse Source Pulse Oximeter Pulse Oximetry (%) 98 Oxygen Delivery Method Room Air Intake Visit Reasons: Annual Exam Intake Note: Patient here for a physical exam Check Processing Clerk Required: No Accompanied by: Self / Same As Patient Allergies Soma and motrin Allergy (Intermediate, Uncoded 05/18/24 16:25) hives, rash soma along with motrin Allergy (Unknown, Uncoded 05/18/24 16:25) Hives Medication List - Last Reconciled 05/18/24 by Prashant Brown MD naproxen sodium (Aleve) 440 mg PO DAILY paroxetine HCl 20 mg PO DAILY Tobacco use date assessed: 05/18/24 Dental Screening Dental Screen Date: 05/18/24 Did you have a dental visit in the last 12 months?: No Did you have a dental problem in the last 6 months where you did not have access to dental care?: No Was dental information given to patient?: Patient has dentist HPI Annual Exam HPI Details occ nausea having nausea last wednesday 1 week before. The patient is a 53-year-old female presenting for a physical examination and management of chronic health conditions. She has a history of obesity, migraine, generalized anxiety disorder, hiatal hernia, lumbar spondylosis, diverticulosis, and urge urinary incontinence. She reports difficulty with urinary control and gastroenterology issues, including frequent diarrhea following meals. Her diverticulosis sometimes flares up, causing significant gastrointestinal symptoms. She has had a previous reaction to paroxetine, which is being monitored and managed currently. The patient indicates experiencing back pain, specifically in the coccyx area, and an inability to sit for long periods. This is possibly related to degenerative disc disease. A family history of colon cancer on the maternal side is noted, along with a heart disease history on the paternal side. The patient reports feeling tiresome and notes sleep disturbances, potentially indicating sleep apnea, for which she has not been previously tested. Historically, she has been on pain medication, naproxen, and Aleve for pain management and paroxetine for anxiety management. - Tetanus vaccination: Last given in April 2018. - Flu vaccine: Administered in December 2023, and again today. - Pneumococcal vaccination: Scheduled for December 2033. - Reminded to schedule colonoscopy and mammogram screenings. - Blood pressure is stable. - Encouraged to maintain a healthy diet, increase water intake, and regular exercise for diverticulosis management. 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 - Reports often feeling sick easily due to work-related exposures. - Family history includes maternal colon cancer, maternal osteoporosis, and paternal heart disease. - Cardiovascular: Reports increased bruising. - Respiratory: Reports shortness of breath, occasional need for an inhaler. - Gastrointestinal: Reports frequent diarrhea after meals. - Musculoskeletal: Reports back pain and difficulty with prolonged sitting. - Neurological: Denies any recent episodes of loss of consciousness. - Psychiatric: Reports feelings of depression and decreased interest. - Labs: Recent blood work showed mild thrombocytosis, normal blood count, normal renal function, normal blood sugar, normal liver function tests, controlled LDL with HDL at 26, normal Vitamin B12, Vitamin D, and folic acid levels. - Urinalysis: Normal [facility] Medical History (Updated 05/18/24 @ 16:48 by Prashant Brown MD) Upper respiratory tract infection Tinea of nail Cellulitis Otitis media Dysuria Left knee pain Surgical History H/O tubal ligation Family History (Updated 05/18/24 @ 16:43 by Prashant Brown MD) Paternal Uncle Heart attack Paternal Aunt Colon cancer Maternal Aunt Colon cancer Breast cancer Family/Other Mental health disorder Social History Housing: Apartment Alcohol intake: current Alcohol intake frequency: holidays/special occasions only Comment: once a month 2 shots Patient Tobacco Use Status: Never used Tobacco Years Smoked: 2013 stopped 1/2 pack a day x 20 years e-Cigarette/Vaping Use: Never Used service: No Current occupational status: employed Current occupational exposures/hazards: No Cognitive needs: No Hearing needs: No Vision needs: No Questionnaire PHQ-9 Over the last 2 weeks, how often have you been bothered by any of the following problems? 1. Little interest or pleasure in doing things: nearly every day 2. Feeling down, depressed, or hopeless: nearly every day 3. Trouble falling or staying asleep, or sleeping too much: several days 4. Feeling tired or having little energy: several days 5. Poor appetite or overeating: several days 6. Feeling bad about yourself - or that you are a failure or have let yourself or your family down: several days 7. Trouble concentrating on things, such as reading the newspaper or watching television: several days 8. Moving or speaking so slowly that other people could have noticed. Or the opposite - being so fidgety or restless that you have been moving around a lot more than usual: several days 9. Thoughts that you would be better off or of hurting yourself in some way: not at all Total score: 12 Depression Screening Interpretation: Positive Depression Screening Done: Yes Source: Developed by Drs. Juan C Mitchell, Nita Dsouza, Kevyn Helm and colleagues, with an educational keli from [employer]. Thrive Questionnaire Date Thrive assessed: 05/18/24 I am a: Patient What is your living situation today?: I have a steady place to live Within the past 12 months, did the food you bought not last and you didn't have the money to get more?: Never true Within the past 12 months, did you worry whether your food would run out before you got money to buy more?: Never true Do you have trouble paying for medicines?: Yes Do you have trouble getting transportation to medical appointments?: No Do you have trouble paying your heating and electricity bill?: No Do you have trouble taking care of your child, family member or friend?: No Do you have trouble with day-to-day activities such as bathing, preparing meals, shopping, managing finances, etc.?: No Are you currently unemployed and looking for a job?: No Are you interested in more education?: No Please select the resources that you would like help with: None Currently or been in a relationship where the following occur: I choose not to answer THRIVE Score: 0 AUDIT C Alcohol Use Questionnaire (AUDIT-C) 1. How often do you have a drink containing alcohol?: Monthly or less 2. How many drinks containing alcohol do you have on a typical day when you are drinking?: 1 or 2 3. How often do you have six or more drinks on one occasion?: Never Total Score: 1 ZURDO-7 AMB Questionnaire ZURDO-7 Date ZURDO - 7 assessed: 05/18/24 Feeling nervous, anxious, or on edge: 3 = Nearly every day Not being able to stop or control worryin = Nearly every day Worrying too much about different things: 3 = Nearly every day Trouble relaxin = Nearly every day Being so restless that it is hard to sit still: 3 = Nearly every day Becoming easily annoyed or irritable: 3 = Nearly every day Feeling afraid as if something awful might happen: 0 = Not at all Total ZURDO-7 score (0-4 normal; 5-9 mild; 10-14 moderate; 15-21 severe): 18 Source: Developed by Drs. Juan C Mitchell, Nita Dsouza, Kevyn Helm and colleagues, with an educational keli from [employer]. Review of Systems Const Denies poor appetite and Denies weakness Eyes Denies no additional complaints ENT Reports Normal hearing present, Denies dizziness, Denies nasal congestion, Denies tinnitus and Denies sore throat Card Denies chest pain, Denies syncope, Denies rapid heart rate and Denies dyspnea Resp Denies cough and Denies dyspnea GI Denies change in stool character, Reports constipation, Denies diarrhea, Denies nausea and Denies vomiting Denies urinary frequency, Denies difficulty voiding and Denies dysuria Neuro Reports Normal hearing present, Denies confusion, Denies dizziness, Denies syncope and Denies weakness Psych Denies confusion Physical exam (Primary Care) Vital Signs: Last Vital Signs Pulse 68 05/18/24 16:23 BP 112/80 05/18/24 16:23 Pulse Ox 98 05/18/24 16:23 Oxygen Delivery Method Room Air 05/18/24 16:23 BMI result Body Mass Index 35.9 Tobacco/Smoking Status: Tobacco use Status Tobacco use date assessed 05/18/24 05/18/24 16:28 Patient Tobacco Use Status Never used Tobacco 05/18/24 16:28 e-Cigarette/Vaping Use Never Used 05/18/24 16:28 PHQ-9: PHQ-9 Score PHQ-9: Total score 12 05/18/24 16:34 Depression Screening Interpretation: Positive Thrive Assessment: Date of Thrive Assessment Date Thrive assessed 05/18/24 05/18/24 16:28 Currently or been in a relationship where the following occur: I choose not to answer Const General: No confusion Orientation/consciousness: No confusion HENMT Head: Yes normocephalic Ears: external ears normal and TM's normal bilaterally Face and sinus: Yes normal facial exam Mouth: moist mucous membranes Throat: Yes tonsils normal Eyes Conjunctivae: conjunctivae normal Pupils: Equal, round and reactive pupils present and Pupil accommodation reflex normal Direct Ophthalmoscopy: normal light reflex Neck Neck: No lymphadenopathy Thyroid: Thyroid normal Chest Chest palpation & inspection: normal inspection of the chest Resp Effort & Inspection: normal respiratory effort and no audible wheezes Auscultation: clear to auscultation bilaterally, no crackles, no wheezes and lung sounds not diminished Cardio Rate: regular rate Rhythm: regular rhythm Peripheral pulses: radial pulses present and dorsalis pedis present GI Palpation (GI): no masses Auscultation: normal bowel sounds and normoactive bowel sounds Rectal Exam - Female: deferred Skin General skin exam: no rashes or lesions noted Rashes: no rashes Neuro General: No confusion Cranial nerves: Yes Equal, round and reactive pupils present and Yes Normal hearing present Cognition (Neuro): normal cognition Gait exam (Neuro): Normal gait present Motor exam (neuro): 5/5 motor strength present throughout Deep tendon reflexes (DTR's): Right brachioradialis reflex intensity grade: 2+, Left brachioradialis reflex intensity grade: 2+, Right patellar reflex intensity grade: 2+ and Left patellar reflex intensity grade: 2+ Extrem General: No edema Ankle/foot/toe images: 1. 5 mm callous formation Office Procedures Flu Questionnaire Does the patient have a severe egg allergy?: No Does the patient have severe life threatening allergies?: No Does the patient have a fever or illness today?: No Has the patient ever had Guillain-Mcneal Syndrome?: No Has the patient ever had any past reaction to a flu shot?: No Immunizations Fluarix Triv [id number] (PF) 45 mcg (15 mcg x 3)/0.5 mL IM syringe Performing Provider: Prashant Brown MD [facility] Administered by: BARB Lama on 05/18/24 17:06 Dose Route Admin Location Dispensed Lot Number Expiration Date [facility] Check Cashier 0.5 mL IM Right Deltoid 0.5 mL [id number] 10/09/24 08910-521-28 [id number] VIS Given Date VIS Provided VIS Publication Date 05/18/24 Single Vaccine 20 Eligibility Eligibility Date Funding Source Not [facility] Eligible 05/18/24 Private Coding Level of Care Code Est Pt Prev Care 40-64y(53297) Diagnoses Annual physical exam Z00.00 Colon cancer screening Z12.11 Breast cancer screening by mammogram Z12.31 Generalized anxiety disorder F41.1 Obesity (BMI 30-39.9) E66.9 Migraine G43.909 Low back pain M54.50 Hypersomnia G47.10 SOB (shortness of breath) on exertion R06.02 Assessment & Plan Assessment & Plan (1) Annual physical exam: Code(s): Z00.00 - Encounter for general adult medical examination without abnormal findings Category: Medical Plan: Patient is advised to eat healthy, keep well hydrated, keep active and have adequate sleep. (2) Colon cancer screening: Code(s): Z12.11 - Encounter for screening for malignant neoplasm of colon Category: Medical Plan: Patient is reminded about colonoscopy (3) Breast cancer screening by mammogram: Code(s): Z12.31 - Encounter for screening mammogram for malignant neoplasm of breast Category: Medical Plan: Patient is reminded about mammogram (4) Generalized anxiety disorder: Comment: decline counselling Code(s): F41.1 - Generalized anxiety disorder Category: Medical Plan: Continue with present medication (5) Obesity (BMI 30-39.9): Code(s): E66.9 - Obesity, unspecified Category: Medical Plan: Diet and exercise (6) Migraine: Code(s): G43.909 - Migraine, unspecified, not intractable, without status migrainosus Category: Medical Plan: Patient is advised to eat healthy, keep well hydrated, keep active and have adequate sleep. (7) Low back pain: Code(s): M54.50 - Low back pain, unspecified Category: Medical (8) Hypersomnia: Code(s): G47.10 - Hypersomnia, unspecified Category: Medical (9) SOB (shortness of breath) on exertion: Code(s): R06.02 - Shortness of breath Category: Medical Plan - Continue current management for migraine and generalized anxiety disorder. - Initiate testing for sleep apnea and consider x-ray for back pain. - Prescribe medication to assist with urinary incontinence. - Continue using naproxen for pain management, while monitoring for any contraindications due to reported family medical history. - Schedule referrals for mammography and reschedule the colonoscopy screening. - Consider referral for possible asthma diagnostic testing. I discussed with the patient her current health status and chronic conditions. We talked about the plan to conduct a sleep study to rule out sleep apnea, considering her symptoms and family history. I explained the importance of managing diverticulosis through diet and hydration and addressed concerns about urinary incontinence with a new prescription plan. We also reviewed the need for routine screening procedures, including mammography and colonoscopy, given her family history. I informed her about arranging x-rays for her persistent back pain and explained the potential necessity for an asthma diagnostic evaluation given her respiratory symptoms. We discussed the importance of getting vaccinated, and I addressed her questions about the COVID-19 vaccine availability at pharmacies. - Continue with present medication, follow dietary improvements with high fiber and adequate hydration. - Schedule colonoscopy and mammogram according to previous referral. - Use prescribed medication for urinary incontinence as directed. - Follow up on sleep study and x-ray referrals provided. - Get the flu shot today, COVID-19 vaccine is available at the local pharmacy. - Use the prescribed pain management regimen and monitor for bruising or unusual symptoms. - Contact me if any adverse effects or new symptoms occur. - Follow recommended exercise and wellness lifestyle instructions for overall health improvement. Orders: Orders MM tomosynthesis screening BI Today Z12.31 - Encounter for screening mammogram for malignant neoplasm of breast XR lumbar spine 2-3V Today M54.50 - Low back pain, unspecified RT home sleep study Today G47.10 - Hypersomnia, unspecified PFT pulmonary function test Today R06.02 - Shortness of breath Medications: New oxybutynin chloride 5 mg PO BID PRN 60 tabs 0RF bladder spasms N39.41 - Urge incontinence Refilled paroxetine HCl 20 mg PO DAILY 90 tabs 0RF
== END 2024-05-18 17:08 | disposition home or self-care (01) ==
PROVIDERS: Visit Provider Internal Medicine
DX: Z00.00 Encounter for general adult medical examination without abnormal findings (principal); Z12.11 Encounter for screening for malignant neoplasm of colon; E66.9 Obesity, unspecified; Z68.35 Body mass index [BMI] 35.0-35.9, adult; Z12.31 Encounter for screening mammogram for malignant neoplasm of breast; F41.1 Generalized anxiety disorder; G43.909 Migraine, unspecified, not intractable, without status migrainosus; M54.50 Low back pain, unspecified; G47.10 Hypersomnia, unspecified; R06.02 Shortness of breath; Z23 Encounter for immunization

== ENCOUNTER → 2024-05-18 16:20 | Outpatient (BNVA) | payer OTHER, SELFPAY | PROVIDERS: Visit Provider Internal Medicine | DX: Z00.00 Encounter for general adult medical examination without abnormal findings (principal); Z23 Encounter for immunization; F41.1 Generalized anxiety disorder; E66.9 Obesity, unspecified; Z68.35 Body mass index [BMI] 35.0-35.9, adult; G43.909 Migraine, unspecified, not intractable, without status migrainosus; M54.50 Low back pain, unspecified; G47.10 Hypersomnia, unspecified; R06.02 Shortness of breath | CPT/HCPCS: 90471; 90656; 96127 ==

== ENCOUNTER 2024-08-17 16:04 | Outpatient (AMB) | payer OTHER, SELFPAY ==
--- NOTE | 2024-08-17 16:14 | MHC.PC.OV ---
Vital Signs 08/17/24 16:16 Height 4 ft 11 in Weight 175 lb BMI 35.3 BP 128/82 Blood Pressure Location Lt brachial Position Sitting Pulse 70 Pulse Source Pulse Oximeter Pulse Oximetry (%) 97 Oxygen Delivery Method Room Air Intake Visit Reasons: hypersomnia Certified Art Therapist Required: No Accompanied by: Self / Same As Patient Allergies Soma and motrin Allergy (Intermediate, Uncoded 08/17/24 16:17) hives, rash soma along with motrin Allergy (Unknown, Uncoded 08/17/24 16:17) Hives Medication List - Last Reconciled 08/17/24 by Prashant Brown MD naproxen sodium (Aleve) 440 mg PO DAILY oxybutynin chloride 5 mg PO BID PRN paroxetine HCl 20 mg PO DAILY Tobacco use date assessed: 08/17/24 Dental Screening Dental Screen Date: 08/17/24 Did you have a dental visit in the last 12 months?: No Did you have a dental problem in the last 6 months where you did not have access to dental care?: No Was dental information given to patient?: Patient has dentist HPI hypersomnia HPI Details pateint is busy with daughter fracture wrist- was on vacation then daughter accident , coworker also PFSH Medical History (Updated 08/17/24 @ 16:45 by Prashant Brown MD) Upper respiratory tract infection Tinea of nail Cellulitis Otitis media Dysuria Left knee pain Surgical History H/O tubal ligation Family History Paternal Uncle Heart attack Paternal Aunt Colon cancer Maternal Aunt Colon cancer Breast cancer Family/Other Mental health disorder Social History Housing: Apartment Alcohol intake: current Alcohol intake frequency: holidays/special occasions only Comment: once a month 2 shots Patient Tobacco Use Status: Never used Tobacco Years Smoked: 2013 stopped 1/2 pack a day x 20 years e-Cigarette/Vaping Use: Never Used service: No Current occupational status: employed Current occupational exposures/hazards: No Cognitive needs: No Hearing needs: No Vision needs: No Questionnaire PHQ-9 Over the last 2 weeks, how often have you been bothered by any of the following problems? 1. Little interest or pleasure in doing things: nearly every day 2. Feeling down, depressed, or hopeless: nearly every day 3. Trouble falling or staying asleep, or sleeping too much: several days 4. Feeling tired or having little energy: several days 5. Poor appetite or overeating: several days 6. Feeling bad about yourself - or that you are a failure or have let yourself or your family down: several days 7. Trouble concentrating on things, such as reading the newspaper or watching television: several days 8. Moving or speaking so slowly that other people could have noticed. Or the opposite - being so fidgety or restless that you have been moving around a lot more than usual: several days 9. Thoughts that you would be better off or of hurting yourself in some way: not at all Total score: 12 Depression Screening Interpretation: Positive Depression Screening Done: Yes Source: Developed by Drs. Juan C Mitchell, Nita Dsozua, Kevyn Helm and colleagues, with an educational keli from [employer]. Thrive Questionnaire Date Thrive assessed: 08/17/24 I am a: Patient What is your living situation today?: I have a steady place to live Within the past 12 months, did the food you bought not last and you didn't have the money to get more?: Never true Within the past 12 months, did you worry whether your food would run out before you got money to buy more?: Never true Do you have trouble paying for medicines?: Yes Do you have trouble getting transportation to medical appointments?: No Do you have trouble paying your heating and electricity bill?: No Do you have trouble taking care of your child, family member or friend?: No Do you have trouble with day-to-day activities such as bathing, preparing meals, shopping, managing finances, etc.?: No Are you currently unemployed and looking for a job?: No Are you interested in more education?: No Please select the resources that you would like help with: None Currently or been in a relationship where the following occur: I choose not to answer THRIVE Score: 0 AUDIT C Alcohol Use Questionnaire (AUDIT-C) 1. How often do you have a drink containing alcohol?: Monthly or less 2. How many drinks containing alcohol do you have on a typical day when you are drinking?: 1 or 2 3. How often do you have six or more drinks on one occasion?: Never Total Score: 1 ZURDO-7 AMB Questionnaire ZUROD-7 Date ZURDO - 7 assessed: 08/17/24 Feeling nervous, anxious, or on edge: 3 = Nearly every day Not being able to stop or control worryin = Nearly every day Worrying too much about different things: 3 = Nearly every day Trouble relaxin = Nearly every day Being so restless that it is hard to sit still: 3 = Nearly every day Becoming easily annoyed or irritable: 3 = Nearly every day Feeling afraid as if something awful might happen: 0 = Not at all Total ZURDO-7 score (0-4 normal; 5-9 mild; 10-14 moderate; 15-21 severe): 18 Source: Developed by Drs. Juan C Mitchell, Nita Dsouza, Kevyn Helm and colleagues, with an educational keli from [employer]. Physical exam (Primary Care) Vital Signs: Last Vital Signs Pulse 70 08/17/24 16:16 BP 128/82 08/17/24 16:16 Pulse Ox 97 08/17/24 16:16 Oxygen Delivery Method Room Air 08/17/24 16:16 BMI result Body Mass Index 35.3 Tobacco/Smoking Status: Tobacco use Status Tobacco use date assessed 08/17/24 08/17/24 16:22 Patient Tobacco Use Status Never used Tobacco 08/17/24 16:16 e-Cigarette/Vaping Use Never Used 08/17/24 16:16 PHQ-9: PHQ-9 Score PHQ-9: Total score 12 08/17/24 16:33 Depression Screening Interpretation: Positive Thrive Assessment: Date of Thrive Assessment Date Thrive assessed 08/17/24 08/17/24 16:22 Currently or been in a relationship where the following occur: I choose not to answer Const General: alert; No acute distress Eyes Conjunctivae: conjunctivae normal Resp Auscultation: clear to auscultation bilaterally Cardio Rate: regular rate Rhythm: regular rhythm GI Inspection: Yes normal to inspection Extrem General: Yes normal to inspection and No edema Coding Level of Care Code Est Pt Level 4 (45474) Diagnoses Obesity (BMI 30-39.9) E66.9 SOB (shortness of breath) on exertion R06.02 Hypersomnia G47.10 Generalized anxiety disorder F41.1 Tinea corporis B35.4 Colon cancer screening Z12.11 Seborrheic dermatitis L21.9 Perimenopause N95.1 Assessment & Plan Assessment & Plan (1) Obesity (BMI 30-39.9): Code(s): E66.9 - Obesity, unspecified Category: Medical Plan: Diet and exercise patient was to try the GLP 1 inhibitor (2) SOB (shortness of breath) on exertion: Code(s): R06.02 - Shortness of breath Category: Medical Plan: Patient was advised to get the pulmonary function test (3) Hypersomnia: Code(s): G47.10 - Hypersomnia, unspecified Category: Medical Plan: Awaiting sleep study (4) Generalized anxiety disorder: Comment: decline counselling Code(s): F41.1 - Generalized anxiety disorder Category: Medical Plan: Patient has been placed on paroxetine. (5) Tinea corporis: Code(s): B35.4 - Tinea corporis Category: Medical (6) Colon cancer screening: Code(s): Z12.11 - Encounter for screening for malignant neoplasm of colon Category: Medical Plan: Patient room is reminded to call the small products ii assembler (7) Seborrheic dermatitis: Code(s): L21.9 - Seborrheic dermatitis, unspecified Category: Medical (8) Perimenopause: Code(s): N95.1 - Menopausal and female climacteric states Category: Medical Plan History of Present Illness The patient is a 53-year-old female presenting with numerous health issues focusing on dermatological discomfort and weight management. Her notable medical history includes a diagnosis of obesity, which exacerbates conditions such as intertrigo, and anxiety, which contributes to migraine frequency. Shortness of breath has previously prompted recommendations for pulmonary evaluation, yet these diagnostic tests are pending. The patient describes chronic rashes in areas prone to moisture retention, potentially indicating a fungal etiology; historical prescriptions for antifungal creams have been moderately effective. Her scalp exhibits seborrheic dermatitis, characteristically presenting as dandruff, for which specialized shampoos are previously utilized. Genetic predisposition to colon malignancy via familial history signals necessity for continued surveillance, though prior screening attempts were disrupted due to personal scheduling conflicts. The patient's menopause-related hot flashes persist, though she remains cautious about initiating hormone replacement therapy due to documented cardiovascular risks. Health Maintenance - Advise and schedule mammogram (pending from last visit) - Colonoscopy screening advised due to family history of colon cancer - Sleep study recommended for unexplained shortness of breath - Encouraged diet modification and increased physical activity targeting weight management Social History - Employment comprises a non-disclosed role, contributing to stress - Family activities, including involvement with grandchildren, impact scheduling - High life stressors are noted from recent emotional events and general stress Review of Systems - Respiratory: Reports shortness of breath - Dermatologic: Reports rash and eczema; reports sweating (hyperhidrosis); reports seborrheic dermatitis - Neurologic: Reports migraines - Psychiatric: Reports generalized anxiety disorder - Endocrine: Reports hot flashes associated with menopause Physical Exam Results Plan The treatment plan involves targeted interventions for each identified problem. For skin conditions, antifungal creams and medicated shampoos were prescribed to alleviate symptoms and prevent recurrence. GLP-1 receptor agonist therapy was introduced to support weight reduction endeavors, where availability and cost were addressed as potential barriers, with self-injection prescribed. Menopausal care informed by a cautious stance on hormone replacement therapy was conveyed, stressing the risk-benefit ratio distinctly. Meanwhile, further diagnostics such as sleep studies and pulmonary evaluations were reinforced due to unresolved respiratory symptoms. Emphasis on preventive health was underscored through recommendations for regular colon and breast screenings given her substantial familial cancer history. Patient was informed and verbally consented to the use of an ambient scribe for clinic note documentation during this visit. Discussion Notes I discussed with the patient the initiating steps for comprehensive weight management, inclusive of GLP-1 agonist therapy, and the potential for successful weight reduction, highlighting insurance constraints as a factor. Treatment for skin conditions was covered, endorsing antifungal and dermatologic intervention for sustainable relief. Menopause symptom management, focusing on non-hormonal alternatives, was detailed due to cardiovascular and oncologic risks associated with hormone replacement therapy. Return preparations including follow-up for outstanding tests and reiteration of preventive colon screenings due to oncologic family history were stressed, ensuring patient understanding of the critical nature of these measures. Patient Instructions - Apply antifungal cream twice daily for one month and consider antifungal powder afterward - Use medicated shampoo twice weekly for scalp care - Self-inject GLP-1 agonist weekly as prescribed; contact for dose adjustment if necessary after three weeks - Follow up on sleep study and pulmonary function test as scheduled - Schedule mammogram and colonoscopy screenings promptly - Maintain a balanced diet and increase physical activity - Drink plenty of water and manage stress levels effectively Medications: New ketoconazole 2% 1 appl topical 2XW 120 mL 0RF L21.9 - Seborrheic dermatitis, unspecified tirzepatide (weight loss) (Zepbound) for 4 weeks 2.5 mg (0.5 mL) subcut QWEEK 2 mL 0RF E66.9 - Obesity, unspecified clotrimazole 1% 1 appl topical BID 45 grams 0RF 4 weeks B35.4 - Tinea corporis
--- OUTSIDE RECORDS SUMMARY | 2024-08-17 16:15 | XMS_ITS | Clinical Summary ---
Author Organization [facility] Address [address] [place] [address] Care Team Providers Care Manager Air Name Role Phone Unavailable Primary Care Provider [...] Paxil x 2w. Med rec done in [facility]. Rx Paxil 20mg x 3m, fu [...] age to complete this topic Insurance [facility] C3 HSN FULL
--- OUTSIDE RECORDS SUMMARY | 2024-08-17 16:15 | XMS_ITS | Encounter Summary ---
Author Organization [employer] Address [address] [place] [address] [address] [place] [address] Care Team Providers Care Freight Brake Operator Name Role Phone Unavailable Primary Care Provider Unavailabl e Reason for Visit * Reason Onset Date Comments New Patient 11/25/2022 Encounter Details Date Type Department Care Team (Late st Contact Info) Description 11/25/[address] [facility] [address] [place] [address] Farshad Aldrich MD [address] [place], [place] [address] New Patient Social History Tobacco Use Types [...] been transfer over to wait list for [employer]. EFFECTIVE SINCE 11/25/2022 documented in this encounter Plan of Treatment Not on file documented as of this encounter Visit Diagnoses Not on filedocumented in this encounter
[2024-08-17 16:16] VITALS: BP 128/82; PULSE 70; O2SAT 97; BMI 35.3
== END 2024-08-17 16:52 | disposition home or self-care (01) ==
LOC: HO.HMCH 16:05
PROVIDERS: Visit Provider Internal Medicine
DX: R06.02 Shortness of breath (principal); G47.10 Hypersomnia, unspecified; E66.9 Obesity, unspecified; Z68.35 Body mass index [BMI] 35.0-35.9, adult; F41.1 Generalized anxiety disorder; Z12.11 Encounter for screening for malignant neoplasm of colon; B35.4 Tinea corporis; L21.9 Seborrheic dermatitis, unspecified; N95.1 Menopausal and female climacteric states

== ENCOUNTER → 2024-08-17 16:04 | Outpatient (BNVA) | payer OTHER, SELFPAY | PROVIDERS: Visit Provider Internal Medicine | DX: Z13.89 Encounter for screening for other disorder (principal) ==

== ENCOUNTER 2024-10-09 15:16 | Emergency (ER) | payer OTHER, SELFPAY ==
[2024-10-09 15:18] VITALS: BP 125/71; PULSE 73; RESP 18; TEMP 36.4; O2SAT 97; BMI 35.0
--- NOTE | 2024-10-09 15:21 | ED_ITS ---
HPI - General Adult General Chief complaint: General Medical Stated complaint: back pain,diarrhea,blood in stool Time Seen by Provider: 10/09/24 20:39 Source: patient Mode of arrival: ambulatory Limitations: no limitations History of Present Illness ED Provider: HPI narrative: Patient with history of anxiety chronic abdominal pain comes here for off and on diarrhea for several months noticed small amount of blood in his stool today also complaining of chronic low back pain no fever no chills no vomiting Related Data Home Medications ?Medication ?Instructions ?Recorded ?Confirmed naproxen sodium 220 mg capsule 440 mg PO DAILY 4 05/18/24 (Aleve) Previous Rx's ?Medication ?Instructions ?Recorded oxybutynin chloride 5 mg tablet 5 mg PO BID PRN bladde r spasms #60 06/27/24 tabs paroxetine HCl 20 mg tablet 20 mg PO DAILY #90 tabs clotrimazole 1 % topical cream 1 appl topical BID 4 we eks #45 08/17/24 grams tirzepatide (weight loss) 2.5 2.5 mg (0.5 mL) subcut Q WEEK #2 mL 08/17/24 mg/0.5 mL subcutaneous pen injector (Zepbound) ketoconazole 2 % shampoo 1 appl topical 2XW #120 mL 0 09/17/24 dicyclomine 20 mg tablet 20 mg PO QID PRN abdominal pain 10/09/24 #20 tabs loperamide 2 mg tablet 2 mg PO Q6H PRN loose stool #20 10/09/24 (Anti-Diarrheal (loperamide)) tabs Allergies Allergy/AdvReac Type Severity Reaction Status Date / Time Soma and motrin Allergy Intermediate hives, rash Uncoded 10/09/24 15:25 soma along with motrin Allergy Unknown Hives Uncoded 10/09/24 15:25 Review of Systems 2 Review of Systems: Yes all other systems are reviewed and are negative PMFSH Past Medical History Medical History Upper respiratory tract infection Tinea of nail Cellulitis Otitis media Dysuria Left knee pain Surgical History H/O tubal ligation Family History Family History Paternal Uncle Heart attack Paternal Aunt Colon cancer Maternal Aunt Colon cancer Breast cancer Family/Other Mental health disorder Social History Social History Housing: Apartment Alcohol intake: current Alcohol intake frequency: does not drink Comment: once a month 2 shots Patient Tobacco Use Status: Never used Tobacco Years Smoked: 2013 stopped 1/2 pack a day x 20 years Smoked in Last 30 Days: No e-Cigarette/Vaping Use: Never Used Use of substances other than those prescribed or required for medical reasons: No Advance Directives: No Advance Directives Information Provided: Yes Do you have a plan to hurt others: No Plan Patient : No service: No Current occupational status: employed Current occupational exposures/hazards: No Cognitive needs: No Hearing needs: No Vision needs: No Physical Exam ED Vital Signs: BMI result Body Mass Index 35.0 Appearance: Alert. Oriented X3. No acute distress. Eyes: PERRLA, No Nystagmus ENT: Pharynx normal. Oral Mucosa moist Neck: Normal inspection. Neck supple. CVS: Normal heart rate and rhythm. Pulses normal. Respiratory: No respiratory distress. Equal air entry bilateral, no wheezing/rales/rhonchi Abdomen: Soft and nontender. Bowel sounds are present, no mass palpable, no CVA tenderness Skin: Skin warm and dry. Normal skin color. Normal skin turgor. Extremities: No lower extremity edema. No calf tenderness Neuro: Oriented X 3. No motor deficit. No sensory deficit.No cerebellar signs , cranial nerves II-XII intact Course Course Course Narrative: RME performed by Paris Sommer PA-C. Patient is a 53 year old assigned female at presenting to the emergency department with diarrhea and blood in her stool. Detailed physical exam and review of systems are deferred to the wiring technician. Labs ordered. Patient placed back in the waiting room pending room availability and results. Medications Administered Discontinued Medications Generic Name Dose Route Start Last Admin Trade Name Freq PRN Reason Stop Dose Admin Dicyclomine HCl 20 mg 10/09/24 21:20 10/09/24 21:34 Dicyclomine Hcl 10 Mg Capsule PO 10/09/24 21:21 20 mg ONCE ONE Administration Loperamide HCl 2 mg 10/09/24 21:20 10/09/24 21:34 Loperamide Hcl 2 Mg Capsule PO 10/09/24 21:21 2 mg ONCE ONE Administration Medical Decision Making Medical Decision Making [facility] Narrative: Patient has chronic abdominal pain with diarrhea off and on medically irritable bowel syndrome patient stool culture was done which was negative for C diff patient's has a plan to follow up with desktop publishing specialist will prescribe dicyclomine and loperamide for chronic diarrhea Lab Data [facility] Lab Attestation statement: I reviewed the patient's lab results. 10/09/24 15:47 10/09/24 15:47 Labs: Lab Results 10/09/24 10/09/24 Range/Units 15:47 16:15 WBC 7.5 (4.8-10.8) X10*3/uL RBC 4.22 (4.20-5.50) X10*6/uL Hgb 12.5 (12.0-16.0) g/dl Hct 37.0 (37.0-47.0) % MCV 87.7 (80.0-98.0) fL MCH 29.6 (27.0-33.0) pg MCHC 33.8 (31.0-35.0) g/dl RDW 13.3 (11.0-16.0) % Plt Count 424 H (160-400) X10*3/uL MPV 9.0 L (9.4-12.3) fL Immature Gran % (Auto) 0.3 (0.0-0.4) % Neut % (Auto) 54.7 (45-73) % Lymph % (Auto) 32.1 (20-40) % [place] % (Auto) 10.2 (2-11) % Eos % (Auto) 1.6 (0-4) % Baso % (Auto) 1.1 (0-2) % Lymph # (Auto) 2.4 (1.2-4.9) X10*3/uL [place] # (Auto) 0.8 (0.1-1.2) X10*3/uL Eos # (Auto) 0.1 (0.0-0.4) X10*3/uL Baso # (Auto) 0.1 (0.0-0.2) X10*3/uL Abs Immat Gran (auto) 0.02 (0.00-0.03) X10*3/uL Absolute Neuts (auto) 4.1 (2.0-8.3) x10*3/uL Absolute Nucleated RBC 0.000 (0.0-0.012) X10*3/uL Nucleated RBC % (auto) 0.0 (0.0-0.2) /100WBC Sodium 142 (135-145) mmol/L Potassium 3.7 (3.3-5.1) mmol/L Chloride 108 (96-108) mmol/L Carbon Dioxide 25 (22-29) mmol/L Anion Gap 13 (12-20) BUN 22 H (9-16) mg/dL Creatinine 0.78 (0.5-1.4) mg/dL Estim Creat Clear Calc 73.8 Estimated GFR > 60 Random Glucose 86 (60-115) mg/dL Calcium 9.0 (8.4-10.2) mg/dL Magnesium 2.1 (1.6-2.6) mg/dL Total Bilirubin 0.3 (0.0-1.0) mg/dL AST 24 (5-31) U/L ALT 14 (0-31) U/L Alkaline Phosphatase 90 (39-117) U/L Total Protein 7.1 (6.5-8.0) g/dL Albumin 4.0 (3.5-5.0) g/dL Urine Color Yellow Urine Appearance Clear Urine pH 5.0 (5.0-9.0) Ur Specific [place] >= 1.030 H (1.005-1.025) Urine Protein Trace (Neg-Trace) mg/dL Urine Glucose (UA) Negative (Negative) mg/dL Urine Ketones Trace (Negative) mg/dL Urine Blood Negative (Negative) Urine Nitrite Negative (Negative) Ur Leukocyte Esterase Negative (Negative) Stl C. cayetanensis PCR Not Detected (Not Detect.) Stool Rotavirus A PCR Not Detected (Not Detect.) Stl Adenov F 40/41 PCR Not Detected (Not Detect.) Stool Astrovirus (PCR) Not Detected (Not Detect.) Stool Campylobacter PCR Not Detected (Not Detect.) Stool Cryptosporidium PCR Not Detected (Not Detect.) Stl Sh Tox Pr E STEC PCR Not Detected (Not Detect.) Stool E coli O157 PCR Not applicable (Not Detect.) Stl Enterotoxigenic E PCR Not Detected (Not Detect.) Stool EPEC (PCR) Detected A (Not Detect.) Stool EAEC (PCR) Not Detected (Not Detect.) Stl E. histolytica PCR Not Detected (Not Detect.) Stool Giardia Lamblia PCR Not Detected (Not Detect.) Stl P. shigelloides PCR Not Detected (Not Detect.) Stool Salmonella PCR Not Detected (Not Detect.) Stool Sapovirus (PCR) Not Detected (Not Detect.) Stl Shigella/EIEC PCR Not Detected (Not Detect.) St Y.enterocolitica PCR Not Detected (Not Detect.) Stool Vibrio (PCR) Not Detected (Not Detect.) Stl Vibrio cholerae PCR Not Detected (Not Detect.) Stl Norovirus GI/GII PCR Not Detected (Not Detect.) C. difficile Tox B Gene NEGATIVE (Negative) Discharge Plan Discharge Clinical Impression: Chronic diarrhea, History of IBS Patient Disposition: Home, Self-Care Instructions: Irritable Bowel Syndrome (DC), Chronic Diarrhea (ED) Additional Instructions: Drink plenty of fluids Take medication as prescribed for diarrhea and abdominal cramps Follow up with your desktop publishing specialist as scheduled Prescriptions: New dicyclomine 20 mg tablet 20 mg PO QID PRN (Reason: abdominal pain) Qty: 20 0RF loperamide [Anti-Diarrheal (loperamide)] 2 mg tablet 2 mg PO Q6H PRN (Reason: loose stool) Qty: 20 0RF No Action oxybutynin chloride 5 mg tablet 5 mg PO BID PRN (Reason: bladder spasms) Qty: 60 0RF paroxetine HCl 20 mg tablet 20 mg PO DAILY Qty: 90 1RF ketoconazole 2 % shampoo 1 appl topical 2XW Qty: 120 0RF naproxen sodium [Aleve] 220 mg capsule 440 mg PO DAILY clotrimazole 1 % cream 1 appl topical BID 28 Days Qty: 45 0RF Zepbound 2.5 mg/0.5 mL pen injector 2.5 mg subcut QWEEK Qty: 2 0RF Rx Instructions: for 4 weeks Stand Alone Forms: Work/School Release Interventions: ED Discharge Assessment Last Done: 10/09/24 21:56 Discharge Date/Time: 10/09/24 21:58 Print Language: Swazi
[2024-10-09 15:58] LABS: MANUAL DIFF FLAG NO
[2024-10-09 15:59] LABS: Basophils Absolute Auto 0.1 X10*3/uL (0.0-0.2); Basophils Percent Auto 1.1 % (0-2); Eosinophils Absolute Auto 0.1 X10*3/uL (0.0-0.4); Eosinophils Percent Auto 1.6 % (0-4); Hemoglobin 12.5 g/dl (12.0-16.0); Imm Gran Abs Auto 0.02 X10*3/uL (0.00-0.03); Imm Gran Pct Auto 0.3 % (0.0-0.4); Lymphocytes Absolute Auto 2.4 X10*3/uL (1.2-4.9); Lymphocytes Percent Auto 32.1 % (20-40); Mean Corpuscular HGB Conc 33.8 g/dl (31.0-35.0); Mean Corpuscular Hemoglobin 29.6 pg (27.0-33.0); Mean Corpuscular Volume 87.7 fL (80.0-98.0); Monocytes Absolute Auto 0.8 X10*3/uL (0.1-1.2); Monocytes Percent Auto 10.2 % (2-11); Neutrophils Absolute Auto 4.1 x10*3/uL (2.0-8.3); Neutrophils Percent Auto 54.7 % (45-73); Platelet Count 424 X10*3/uL (160-400); Red Blood Count 4.22 X10*6/uL (4.20-5.50); Red Cell Distribution Width 13.3 % (11.0-16.0); White Blood Count 7.5 X10*3/uL (4.8-10.8)
[2024-10-09 16:13] LABS: Alanine Aminotransferase 14 U/L (0-31); Alkaline Phosphatase 90 U/L (39-117); Anion Gap 13 (12-20); Aspartate Amino Transferase 24 U/L (5-31); Bilirubin Total 0.3 mg/dL (0.0-1.0); Blood Urea Nitrogen 22 mg/dL (9-16); Carbon Dioxide 25 mmol/L (22-29); Chloride 108 mmol/L (96-108); Creatinine Clr Calc Pharmacy 73.8; Estimated Glomerular Filt Rate > 60; Glucose Random 86 mg/dL (60-115); Magnesium 2.1 mg/dL (1.6-2.6); Potassium 3.7 mmol/L (3.3-5.1); Sodium 142 mmol/L (135-145); Total Protein 7.1 g/dL (6.5-8.0)
[2024-10-09 16:25] LABS: Appearance Urine Clear; Color Urine Yellow; Glucose Urine UA Negative (Negative); Leukocyte Esterase Urine Negative (Negative); Nitrite Urine Negative (Negative); Specific Gravity - Urine >= 1.030 (1.005-1.025); Urine Blood Negative (Negative); Urine Ketones Trace mg/dL (Negative); Urine Protein Trace mg/dL (Neg-Trace)
[2024-10-09 17:20] LABS: CDiff Gene PCR NEGATIVE (Negative)
[2024-10-09 20:18] VITALS: BP 153/99; PULSE 53; RESP 16; TEMP 35.8; O2SAT 98
[2024-10-09] MEDS: Dicyclomine HCl 10 MG CAPSULE 20 MG PO (21:34)
[2024-10-09] MEDS: Loperamide HCl 2 MG CAPSULE PO (21:34)
[2024-10-09 21:56] VITALS: BP 123/80; PULSE 57; RESP 16; TEMP 36.6; O2SAT 97
[2024-10-10 11:06] LABS: Adenovirus F 40/41 Not Detected (Not Detect.); Astrovirus Not Detected (Not Detect.); Campylobacter Not Detected (Not Detect.); Cryptosporidium Not Detected (Not Detect.); Cyclospora cayetanensis Not Detected (Not Detect.); E. coli EAEC Not Detected (Not Detect.); E. coli EPEC Detected (Not Detect.); E. coli ETEC Not Detected (Not Detect.); E. coli STEC Not Detected (Not Detect.); Entamoeba histolytica Not Detected (Not Detect.); Giardia lamblia Not Detected (Not Detect.); Norovirus GI/GII Not Detected (Not Detect.); Plesiomonas shigelloides Not Detected (Not Detect.); Rotavirus A Not Detected (Not Detect.); Salmonella Not Detected (Not Detect.); Sapovirus Not Detected (Not Detect.); Shigella sp./EIEC Not Detected (Not Detect.); Vibrio Not Detected (Not Detect.); Vibrio Cholerae Not Detected (Not Detect.); Yersinia enterocolitica Not Detected (Not Detect.)
== END 2024-10-09 21:58 | disposition home or self-care (01) ==
PROVIDERS: Physician Assistant Medical; Emergency Provider Internal Medicine; PCP Internal Medicine
DX: K58.9 Irritable bowel syndrome, unspecified (principal); K52.9 Noninfective gastroenteritis and colitis, unspecified; M54.50 Low back pain, unspecified
CPT/HCPCS: 36415; 80053; 81003; 83735; 85025; 87493; 87507; 99283; 99284

== ENCOUNTER 2024-10-26 15:27 | Outpatient (AMB) | payer OTHER, SELFPAY ==
[2024-10-26 15:29] VITALS: BP 122/80; PULSE 98; TEMP 36.1; O2SAT 99; BMI 34.9
--- NOTE | 2024-10-26 15:29 | MHC.PC.OV ---
Vital Signs 10/26/24 15:29 Height 4 ft 11 in Weight 173 lb BMI 34.9 BP 122/80 Blood Pressure Location Lt brachial Position Sitting Pulse 98 Pulse Source Pulse Oximeter Temp 97.0 F Temp Source Temporal Artery Scan Pulse Oximetry (%) 99 Oxygen Delivery Method Room Air Int[place] [facility] [place] diarrhea/blood in stool Allergies Soma and motrin Allergy (Intermediate, Uncoded 10/26/24 15:30) hives, rash soma along with motrin Allergy (Unknown, Uncoded 10/26/24 15:30) Hives Medication List - Last Reconciled 10/26/24 by Prashant Brown MD clotrimazole 1% 1 appl topical BID 4 weeks dicyclomine 20 mg PO QID PRN hydrocortisone 2.5% (Proctosol HC) 1 appl LA BID-QID PRN ketoconazole 2% 1 appl topical 2XW loperamide (Anti-Diarrheal (loperamide)) 2 mg PO Q6H PRN miconazole nitrate 2% (Zeasorb AF) 1 appl topical BID naproxen sodium (Aleve) 440 mg PO DAILY oxybutynin chloride 5 mg PO BID PRN paroxetine HCl 20 mg PO DAILY psyllium husk (Daily Fiber (psyllium-aspartame)) 1 packet PO DAILY semaglutide (weight loss) (Wegovy) 0.25 mg (0.5 mL) subcut QWEEK Tobacco use date assessed: 08/17/24 Dental Screening Dental Screen Date: 08/17/24 Did you have a dental visit in the last 12 months?: No Did you have a dental problem in the last 6 months where you did not have access to dental care?: No Was dental information given to patient?: Patient has dentist [facility] Medical History (Updated 10/26/24 @ 15:47 by Prashant Brown MD) Diarrhea Upper respiratory tract infection Tinea of nail Cellulitis Otitis media Dysuria Left knee pain Surgical History H/O tubal ligation Family History Paternal Uncle Heart attack Paternal Aunt Colon cancer Maternal Aunt Colon cancer Breast cancer Family/Other Mental health disorder Social History (Reviewed 10/26/24 @ 15:30 by PATI Rey Housing: Apartment Alcohol intake: current Alcohol intake frequency: does not drink Comment: once a month 2 shots Patient Tobacco Use Status: Never used Tobacco Years Smoked: 2013 stopped 1/2 pack a day x 20 years e-Cigarette/Vaping Use: Never Used service: No Current occupational status: employed Current occupational exposures/hazards: No Cognitive needs: No Hearing needs: No Vision needs: No Questionnaire PHQ-9 Over the last 2 weeks, how often have you been bothered by any of the following problems? 1. Little interest or pleasure in doing things: nearly every day 2. Feeling down, depressed, or hopeless: nearly every day 3. Trouble falling or staying asleep, or sleeping too much: several days 4. Feeling tired or having little energy: several days 5. Poor appetite or overeating: several days 6. Feeling bad about yourself - or that you are a failure or have let yourself or your family down: several days 7. Trouble concentrating on things, such as reading the newspaper or watching television: several days 8. Moving or speaking so slowly that other people could have noticed. Or the opposite - being so fidgety or restless that you have been moving around a lot more than usual: several days 9. Thoughts that you would be better off or of hurting yourself in some way: not at all Total score: 12 Depression Screening Interpretation: Positive Depression Screening Done: Yes Source: Developed by Drs. Juan C Mitchell, Nita Dsouza, Kevyn Helm and colleagues, with an educational keli from [employer]. Thrive Questionnaire Date Thrive assessed: 05/18/24 I am a: Patient What is your living situation today?: I have a steady place to live Within the past 12 months, did the food you bought not last and you didn't have the money to get more?: Never true Within the past 12 months, did you worry whether your food would run out before you got money to buy more?: Never true Do you have trouble paying for medicines?: Yes Do you have trouble getting transportation to medical appointments?: No Do you have trouble paying your heating and electricity bill?: No Do you have trouble taking care of your child, family member or friend?: No Do you have trouble with day-to-day activities such as bathing, preparing meals, shopping, managing finances, etc.?: No Are you currently unemployed and looking for a job?: No Are you interested in more education?: No Please select the resources that you would like help with: None Currently or been in a relationship where the following occur: I choose not to answer THRIVE Score: 0 AUDIT C Alcohol Use Questionnaire (AUDIT-C) 1. How often do you have a drink containing alcohol?: Monthly or less 2. How many drinks containing alcohol do you have on a typical day when you are drinking?: 1 or 2 3. How often do you have six or more drinks on one occasion?: Never Total Score: 1 ZURDO-7 AMB Questionnaire ZURDO-7 Date ZURDO - 7 assessed: 08/17/24 Feeling nervous, anxious, or on edge: 3 = Nearly every day Not being able to stop or control worryin = Nearly every day Worrying too much about different things: 3 = Nearly every day Trouble relaxin = Nearly every day Being so restless that it is hard to sit still: 3 = Nearly every day Becoming easily annoyed or irritable: 3 = Nearly every day Feeling afraid as if something awful might happen: 0 = Not at all Total ZURDO-7 score (0-4 normal; 5-9 mild; 10-14 moderate; 15-21 severe): 18 Source: Developed by Drs. Juan C Mitchell, Nita Dsouza, Kevyn Helm and colleagues, with an educational keli from [employer]. Physical exam (Primary Care) Vital Signs: Last Vital Signs Temp 97.0 F 10/26/24 15:29 Pulse 98 10/26/24 15:29 BP 122/80 10/26/24 15:29 Pulse Ox 99 10/26/24 15:29 Oxygen Delivery Method Room Air 10/26/24 15:29 BMI result Body Mass Index 34.9 Tobacco/Smoking Status: Tobacco use Status Tobacco use date assessed 08/17/24 10/26/24 15:38 Patient Tobacco Use Status Never used Tobacco 10/26/24 15:38 e-Cigarette/Vaping Use Never Used 10/26/24 15:38 PHQ-9: PHQ-9 Score PHQ-9: Total score 12 10/26/24 15:38 Depression Screening Interpretation: Positive Thrive Assessment: Date of Thrive Assessment Date Thrive assessed 05/18/24 10/26/24 15:38 Currently or been in a relationship where the following occur: I choose not to answer Const General: alert; No acute distress Eyes Conjunctivae: conjunctivae normal Resp Auscultation: clear to auscultation bilaterally Cardio Rate: regular rate Rhythm: regular rhythm GI Inspection: Yes normal to inspection Extrem General: Yes normal to inspection and No edema Coding Level of Care Code Est Pt Level 4 (00762) Diagnoses Obesity (BMI 30-39.9) E66.9 Diarrhea R19.7 Generalized anxiety disorder F41.1 Rectal bleeding K62.5 Assessment & Plan Assessment & Plan (1) Obesity (BMI 30-39.9): Code(s): E66.9 - Obesity, unspecified Category: Medical Plan: Diet and exercise (2) Diarrhea: Code(s): R19.7 - Diarrhea, unspecified Category: Medical Plan: Patient has a schedule with Gastroenterology in January. Advised to get more fiber in the diet (3) Generalized anxiety disorder: Comment: decline counselling Code(s): F41.1 - Generalized anxiety disorder Category: Medical Plan: Continue with paroxetine (4) Rectal bleeding: Code(s): K62.5 - Hemorrhage of anus and rectum Category: Medical Plan History of Present Illness The patient is a 53-year-old female presenting with gastrointestinal symptoms, primarily intermittent diarrhea and blood in the stool. The symptoms have been ongoing, with the patient experiencing watery stools, particularly in the morning, which has impacted her daily activities and work. She reports a history of visiting the emergency room on October 09, 2024, where she was evaluated and found to have a normal blood count, ruling out anemia. The patient has a history of migraine and generalized anxiety disorder, which are being managed with paroxetine. She has been advised to increase dietary fiber intake to help manage her gastrointestinal symptoms and has a scheduled appointment with gastroenterology in January. The patient also reports a suspected irritable bowel syndrome, as her mother has similar stomach issues. She has not undergone any recent surgeries except for a section, and her gallbladder is intact. Additionally, the patient has been experiencing a fungal infection under her breasts, likely due to sweating at work, and has been using antifungal powder for relief. Health Maintenance - Advised to increase dietary fiber intake for gastrointestinal health - Scheduled follow-up with gastroenterology in January Social History - Employment: Patient reports sweating a lot at work, contributing to a fungal infection under her breasts. Review of Systems - Gastrointestinal: Reports intermittent diarrhea, blood in stool, and watery stools, especially in the morning. - Dermatological: Reports fungal infection under breasts due to sweating. Physical Exam Results - Labs: Normal blood count, no anemia detected. - Labs: Mildly elevated lithium count at 424. - Labs: Normal electrolytes, renal function, magnesium, and liver function tests. Plan The patient will be advised to increase dietary fiber intake to help manage her gastrointestinal symptoms, particularly the intermittent diarrhea and blood in stool. She is scheduled for a follow-up with gastroenterology in January to further evaluate her symptoms and rule out any underlying conditions such as irritable bowel syndrome. Medications for hemorrhoids and an antifungal powder for the fungal infection under her breasts will be prescribed to alleviate her symptoms. The patient will continue her current medication regimen for migraine and generalized anxiety disorder, including paroxetine. Additionally, a referral for weight management will be made to address her obesity, and a change in medication to Wegovy will be considered due to insurance coverage issues with previous prescriptions. Patient was informed and verbally consented to the use of an ambient scribe for clinic note documentation during this visit. Discussion Notes I discussed with the patient the importance of increasing dietary fiber to manage her gastrointestinal symptoms and the plan to follow up with gastroenterology in January. We talked about the use of medications for hemorrhoids and antifungal powder for her skin condition. I also addressed her concerns about insurance coverage for weight management medications and the plan to switch to Wegovy. Patient Instructions - Increase dietary fiber intake to help manage diarrhea. - Follow up with gastroenterology in January as scheduled. - Use prescribed medications for hemorrhoids and antifungal powder as directed. - Continue taking paroxetine for anxiety and migraine management. - Contact insurance regarding coverage for weight management medication and follow up on the switch to Wegovy. Orders: Referrals Medical Weight Management Referral E66.9 - Obesity, unspecified Medications: New psyllium husk (Daily Fiber (psyllium-aspartame)) 1 packet PO DAILY 54 ea 3RF R19.7 - Diarrhea, unspecified hydrocortisone 2.5% (Proctosol HC) 1 appl LA BID-QID PRN 30 grams 0RF hemorrhoids K62.5 - Hemorrhage of anus and rectum semaglutide (weight loss) (Jasson) administer weeks 1 through 4 of therapy 0.25 mg (0.5 mL) subcut QWEEK 2 mL 1RF E66.9 - Obesity, unspecified miconazole nitrate 2% (Zeasorb AF) 1 appl topical BID 85 grams 1RF E66.9 - Obesity, unspecified
--- OUTSIDE RECORDS SUMMARY | 2024-10-26 16:05 | XMS_ITS | Clinical Summary ---
Author Organization [facility] Address [address] [place] [address] Care Team Providers Care Implement Mechanic Name Role Phone Unavailable Primary Care Provider [...] Paxil x 2w. Med rec done in [facility]. Rx Paxil 20mg x 3m, fu with [...] 91 03/15/2023 1:45 PM EST Temperature 36.8 C (98.2 F) 03/15/2023 1:45 PM EST Respiratory Rate 18 03/15/2023 1:45 PM EST [...] Screening 1968 SDOH Screening 1968 Sigmoidoscopy 1968 Disability Screening 1968 Alcohol/Substance Use Screening 1980 Hepatitis C Screening 1986 DTaP/Tdap/Td Vaccines (1 - Tdap) 12/23/1987 Hepatitis B Vaccines (1 of 3 - 19+ 3-dose series) 12/23/1987 Pap Smear 1989 Cervical Cancer Screening 1998 HPV/Cotest 1998 Mammogram 2008 Pneumococcal Vaccine: 50+ Ye ars (1 of 1 - PCV) 2018 Zoster Vaccines (1 of 2) 2018 COVID-19 Vaccine (1 - 2023-2 5 season) 2023 Tobacco Screening 03/15/2024 03/15/2023 Influenza Vaccine (#1) 2024 RSV Patients and Pa tients Aged 60 [...] patient's age to complete this topic Meningococcal B Vaccine Aged Out No l onger eligible based on patient's age to complete this topic Meningococcal Vaccine Aged Out No pearl mihaela eligible based on patient's age to complete this topic RSV under 20 months Aged Out No longe r eligible based on patient's age to complete this topic Rotavirus Vaccines Aged Out No longer eligible based on patient's age to complete this topic Insurance [facility] F[facility]
== END 2024-10-26 15:57 | disposition home or self-care (01) ==
LOC: HO.HMCH 15:28
PROVIDERS: PCP Internal Medicine; Visit Provider Internal Medicine
DX: R19.7 Diarrhea, unspecified (principal); E66.9 Obesity, unspecified; Z68.34 Body mass index [BMI] 34.0-34.9, adult; F41.1 Generalized anxiety disorder; K62.5 Hemorrhage of anus and rectum

== ENCOUNTER 2025-01-11 13:50 | Outpatient (AMB) | payer OTHER, SELFPAY ==
--- NOTE | 2025-01-11 14:02 | A.OFFVIS_ITS ---
Vital Signs 01/11/25 14:10 Height 4 ft 11 in Weight 172 lb BMI 34.7 BP 104/63 Blood Pressure Location Lt brachial Position Sitting Pulse 82 Pulse Oximetry (%) 98 Oxygen Delivery Method Room Air Intake Visit Reasons: Colonoscopy Screening Intake Note: Patient new consult for 1st pre Colonoscopy screening. Patient cc: hx hemorrhoids with bloody stool, hx diverticulitis, abdominal pain/bloating, and patient have to eat slow due sensation of food geeting stock. Ct Scan Special Procedures Technologist Required: No Accompanied by: Self / Same As Patient Allergies Soma and motrin Allergy (Intermediate, Uncoded 10/26/24 15:30) hives, rash soma along with motrin Allergy (Unknown, Uncoded 10/26/24 15:30) Hives Medication List - Last Reconciled 01/11/25 by Kena Younger CNP clotrimazole 1% 1 appl topical BID 4 weeks dicyclomine 20 mg PO QID PRN hydrocortisone 2.5% (Proctosol HC) 1 appl [place] BID-QID PRN ketoconazole 2% 1 appl topical 2XW loperamide (Anti-Diarrheal (loperamide)) 2 mg PO Q6H PRN miconazole nitrate 2% (Zeasorb AF) 1 appl topical BID naproxen sodium (Aleve) 440 mg PO DAILY oxybutynin chloride 5 mg PO BID PRN paroxetine HCl 20 mg PO DAILY HPI HPI Colonoscopy Screening: Details: Patient is a 54-year-old female with PMH of anxiety, migraine. Referred by PCP for pre colonoscopy screening Patient presents for initial colonoscopy screening. Reports an episode in September of acute onset diarrhea with abdominal pain and rectal bleeding, prompting ER visit and subsequent workup, found to have EPEC infection. Diarrhea and pain resolved with supportive care; currently no diarrhea. Intermittent mild left- sided abdominal pain persists, typically triggered by eating quickly or during suspected diverticulosis flare; severity is mild and self-limited. No current constipation or diarrhea; bowel habits have normalized with regularity over the past week. Denies recent hematochezia; prior bleeding attributed to internal hemorrhoids. Denies nausea or vomiting. Appetite fluctuates. Reports difficulty with rapid food ingestion resulting in hiccups, abdominal discomfort, and occasional gas. No dysphagia or heartburn. Reports past diagnosis of diverticulosis?occasional left-sided pain thought to correlate with this. Also reports ongoing recovery from a viral illness (body aches, cough, sputum production, low-grade fever, fatigue, dizziness, forgetfulness) beginning approximately three weeks ago, with lingering mild symptoms. Medical history significant for depression and chronic back pain; takes paroxetine, naproxen as needed for back pain. No personal history of cardiac or pulmonary disease, though notes mild exertional dyspnea, possibly related to anxiety. PFTs pending. Family history significant for colon and/or breast cancer in two aunts. Patient denies: n/v, pyrosis, regurgitation, dysphasia, unintentional wt loss. Social hx: -ETOH use, socially -occasional marijuana, denies other recreational drug use -non-smoker - family hx as below -denies personal hx of CA -tolerated anesthesia in the past without difficulty. [facility] Medical History (Updated 01/11/25 @ 15:03 by Kena Younger CNP) Upper respiratory tract infection Diarrhea Tinea of nail Cellulitis Otitis media Dysuria Left knee pain Surgical History H/O tubal ligation Family History Paternal Uncle Heart attack Paternal Aunt Colon cancer Maternal Aunt Breast cancer Family/Other Mental health disorder Social History Housing: Apartment Alcohol intake: current Alcohol intake frequency: does not drink Comment: once a month 2 shots Patient Tobacco Use Status: Never used Tobacco Years Smoked: 2013 stopped 1/2 pack a day x 20 years e-Cigarette/Vaping Use: Never Used service: No Current occupational status: employed Current occupational exposures/hazards: No Cognitive needs: No Hearing needs: No Vision needs: No Review of Systems Const Reports as per HPI ENT Reports as per HPI Card Reports as per HPI Resp Reports as per HPI GI Reports as per HPI Reports as per HPI Physical Exam Const General: healthy appearing, no acute distress and well developed Nutritional Appearance: average body habitus Orientation/consciousness: patient oriented x3 HEENT Head: Yes normal to inspection, Yes normocephalic and Yes atraumatic Face and sinus: Yes normal facial exam Eyes General: appearance normal, both eyes and all related structures Neck Neck: Yes normal visual inspection Resp Effort & Inspection: normal respiratory effort, able to speak in complete sentences, no tracheal deviation and symmetric chest movement Auscultation: clear to auscultation bilaterally Cardio Jugular venous distension: no JVD Rate: regular rate Rhythm: regular rhythm Heart sounds: S1 normal heart sound present, S2 normal heart sound present, no gallops and no murmurs GI Inspection: Yes normal to inspection, No distended and Yes obesity Palpation (GI): Soft to palpation, not firm, nontender and No hepatosplenomegaly present Auscultation: normoactive bowel sounds Neuro General: patient oriented x3 Gait exam (Neuro): Normal gait present Psych Appearance: grossly normal Mental Status: mental status grossly normal Speech and movement: Normal speech and movement present Affect: normal affect Attitude: cooperative Thought process: Normal thought process present Thought content: Normal thought content present Insight: Good insight present (Psych) Judgement: Good judgement present (Psych) Assessment & Plan Assessment & Plan (1) Colon cancer screening: Code(s): Z12.11 - Encounter for screening for malignant neoplasm of colon Category: Medical Plan: Due for index screening colonoscopy. History of rectal bleeding, anemia absent, family history concerning; need to exclude additional causes. Additional Testing: - Colonoscopy scheduled pending pulmonary clearance. - Labs from September WN with on anemia; monitor if new symptoms develop. Medication Management: - Continue current regimen; hold NSAIDs near time of procedure; use GI protection if frequent NSAID use required. Lifestyle Recommendations: - Maintain high fiber diet and hydration; avoid straining; observe for recurrent bleeding or changes in bowel habits. Follow-Up: - Schedule colonoscopy once PFT completed. - GI follow-up post-procedure or sooner if symptoms recur/worsen. (2) Diverticulosis: Code(s): K57.90 - Diverticulosis of intestine, part unspecified, without perforation or abscess without bleeding Category: Medical Plan: Known hx; episodic left-sided pain; no signs of acute inflammation. Additional Testing: - None needed unless symptomatic changes. Medication Management: - Symptomatic as needed with fiber and hydration. Lifestyle Recommendations: - Maintain dietary fiber; monitor for persistent/acute pain or new bleeding. Follow-Up: - Routine surveillance; immediate evaluation if signs of acute diverticulitis. (3) Upper respiratory tract infection: Code(s): J06.9 - Acute upper respiratory infection, unspecified Category: Medical Qualifiers: URI type: unspecified URI Qualified Code(s): J06.9 - Acute upper respiratory infection, unspecified Plan: Recent onset with typical symptoms; currently improving. Additional Testing: - None unless symptoms persist/worsen. Medication Management: - Supportive care: fluids, rest, OTC symptomatic management (e.g., Mucinex). Lifestyle Recommendations: - Hydration, rest, gradual return to activity. Follow-Up: - PCP if prolonged or worsening symptoms. Plan Follow-up colonoscopy or sooner as needed Time: I spent a total of 34 minutes on the date of encounter which includes: Preparing to see the patient (reviewed previous documentation, test results and medical history) Performing a medically appropriate exam and/or evaluation Ordering medications, tests, and procedures Documenting clinical information in the health record Orders: Referrals GI Procedure Notification K57.90 - Diverticulosis of intestine, part unspecified, without perforation or abscess without bleeding, K62.5 - Hemorrhage of anus and rectum, Z12.11 - Encounter for screening for malignant neoplasm of colon Medications: New polyethylene glycol 3350 (Miralax) per colonoscopy prep instructions 238 grams PO ONCE 238 grams 0RF bisacodyl Take per colonoscopy instructions 5 mg PO ONCE 4 tabs 0RF Coding Level of Care Code New Pt New Pt Level 3 (63266) Patient Type New Diagnoses Colon cancer screening Z12.11 Diverticulosis K57.90 Upper respiratory tract infection, unspecified type J06.9 URI type: unspecified URI
[2025-01-11 14:10] VITALS: BP 104/63; PULSE 82; O2SAT 98; BMI 34.7
--- OUTSIDE RECORDS SUMMARY | 2025-01-11 15:30 | XMS_ITS | Clinical Summary ---
Author Organization [facility] Address [address] [place] [address] Care Team Providers Care Online Merchandising Coordinator Name Role Phone Unavailable Primary Care Provider [...] Paxil x 2w. Med rec done in [facility]. Rx Paxil 20mg x 3m, fu with [...] 2018 Zoster Vaccines (1 of 2) 2018 Tobacco Screening 03/15/2024 03/15/2023 COVID-19 Vaccine (1 - 2023-2 5 season) 2024 Influenza Vaccine (#1) 2024 RSV Patients and [...] patient's age to complete this topic Insurance [facility] C[facility]
--- OUTSIDE RECORDS SUMMARY | 2025-01-11 15:30 | XMS_ITS ---
Author Name [facility] Organization Unknown Care Team Organization Name Specialty Phone Email Start Date End Da te [facility] Brennan Lugo Primary Care 06/17/202211/10 [facility] Termed, PROVIDER Primary Care 02/17/202211/10
--- OUTSIDE RECORDS SUMMARY | 2025-01-11 15:30 | XMS_ITS | Encounter Summary ---
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 EFFECTIVE SINCE 11/25/2022 documented in this encounter Plan of Treatment Not on file documented as of this encounter Visit Diagnoses Not on filedocumented in this encounter
== END 2025-01-11 14:50 | disposition home or self-care (01) ==
LOC: HO.HGI 13:51
PROVIDERS: PCP Internal Medicine; Visit Provider Nurse Practitioner Family
DX: Z01.818 Encounter for other preprocedural examination (principal); Z12.11 Encounter for screening for malignant neoplasm of colon; K57.90 Diverticulosis of intestine, part unspecified, without perforation or abscess without bleeding; J06.9 Acute upper respiratory infection, unspecified
CPT/HCPCS: S0285